=== PATIENT | male | born 1955 | race Caucasian/White ===

== ENCOUNTER 2017-01-04 00:29 | Inpatient (IN) | payer MEDICARE ==
[~2017-01-04] VITALS: Ht 198.1 cm; Wt 174.6 kg
--- NOTE | ~2017-01-04 | OP ---
PATIENT NAME: PHILIPPE LEON MEDICAL RECORD: [id number] :[birth year] LOCATION:D.MS [facility]38 ADMISSION DATE:01/04/17 SURGEON: ZANE HERNANDEZ MD DATE OF OPERATION: 01/05/2017 PREOPERATIVE DIAGNOSES: 1. Left foot diabetic ulcer. 2. Diabetic neuropathy. 3. Diabetes mellitus. 4. Morbid obesity. POSTOPERATIVE DIAGNOSES: 1. Left foot diabetic ulcer. 2. Diabetic neuropathy. 3. Diabetes mellitus. 4. Morbid obesity. PROCEDURE: Excisional sharp debridement of left foot wounds. SURGEON: Zane Hernandez MD. REPORT OF PROCEDURE: The patient's left foot was prepped and draped in sterile fashion. On the lateral aspect of the plantar aspect of the foot just below the fifth toe, there is an area of necrotic tissue. There was no noted purulence. The tissue was sharply excised down to normal appearing bloody tissue. This dissection was continued with electrocautery until we had a normal tissue throughout the base of the wound. There was no tracking of the wound in the area between the toes or to the bone or joint. The total size of the wound at the conclusion was a 2.5 x 3 cm. The depth was approximately 1 cm. We irrigated out the wound thoroughly with peroxide and saline solution and then packed the wound with peroxide soaked 4 x 4 and then covered it with dry 4 x 4s, Kerlix and an Prosper wrap. COMPLICATIONS: None. CONDITION: Stable. ANESTHESIA: General endotracheal. BLOOD LOSS: 30 mL. TRANSINT:[id number] Voice Confirmation ID: [id number] DOCUMENT ID: [id number] ZANE HERNANDEZ MD CC: YAMILET WILSON MD [id number] DICTATION DATE: 01/05/17 1304 COMMERCIAL MANAGEMENT ACCOUNTANT: 01/05/17 1409 ADM IN [place] [id number] [place] [address]
--- NOTE | ~2017-01-04 | PN ---
PATIENT:PHILIPPE LEON MEDICAL RECORD: [id number] LOCATION:DMelanyMS [facility]223 ADMISSION DATE: 01/04/17 PROGRESS NOTE DATE OF SERVICE: 01/06/2017 Addendum His dressing is dry. The family was at the bedside. They showed me some pictures of some before and after pictures of the wound approximately debridement and afterwards. Dr. Hernandez will return on Sunday. The patient's pain is controlled. TRANSINT:[id number] Voice Confirmation ID: [id number] DOCUMENT ID: [id number] TED TAYLOR MD CC: [id number] DICTATION DATE: 01/07/171925 MATCHER: 01/07/172024 ADM IN [facility] [address] [place] [address]
--- NOTE | ~2017-01-04 | DS ---
PATIENT:PHILIPPE LEON :53 MEDICAL RECORD: [id number] DISCHARGE SUMMARY ADMISSION DATE: 01/04/17 DISCHARGE DATE: DISCHARGE DIAGNOSES: Left plantar foot ulcer, left foot cellulitis with Providencia rettgeri, Staphylococcus aureus, glucose intolerance, exogenous obesity, adult obstructive sleep apnea, peripheral neuropathy, hyperlipidemia, hypertension, lumbar disc disease, chronic pain syndrome, osteoarthritis. HOSPITAL COURSE: A 61-year-old male with glucose intolerance and chronic neuropathy in his lower extremities, followed by Dr. Luna in [place], presented to medicine unassigned call with a nonhealing left plantar foot ulcer. It was necrotic and fairly large. He had decreased sensation to touch. Arterial Dopplers did show slight decreased flow in the left lower extremity. Seen in consultation by Dr. Hernandez from surgery. The patient was taken to surgery the following day with a sharp excisional debridement of the left foot wounds. No tracking was noted. Total size of the wound at the conclusion was 2.5 x 3 cm. The depth was 1 cm. It was then packed with peroxide soaks 4 x 4 and cover with dry 4 x 4s. Postoperatively, the patient has done well, is on IV antibiotics. Cultures returned showing above organisms. He has received a full course of antibiotics currently and his cellulitis has resolved. The wound is improving with daily wound care. The patient's metformin was held for an arteriogram, which showed no evidence of significant occlusive disease. Desires discharge home today. He will be switched to oral Septra DS, which covers both of the organisms. He is going to follow up with his doctor, Dr. Luna, [facility] for wound dressing changes. I have recommended followup at the diabetic foot clinic at [facility]. They will consider that with Dr. Luna. DISCHARGE MEDICATIONS: Septra DS 1 p.o. b.i.d. for 10 days, ____ peroxide 4 x 4s soaked dressing changes daily, pravastatin 40 mg at bedtime, lisinopril 20 mg a day, HCTZ 25 mg p.o. q. a.m., Neurontin 100 mg p.o. t.i.d., allopurinol 300 mg daily, metformin 500 mg b.i.d., Tylenol 650 one q. 6 hours p.r.n. pain, Stamps 10/325 one q. 4 hours for severe pain, Zanaflex 4 mg q. 8 hours at bedtime p.r.n. muscle spasm. ACTIVITY: Progress as tolerated. DIET: ADA diet. Return to clinic to see Dr. Luna in 1 week. TRANSINT:[id number] Voice Confirmation ID: [id number] DOCUMENT ID: [id number] YAMILET WILSON MD CC: [id number] DICTATION DATE: 01/09/17822 GASKET WINDER: 01/09/17 0954 [facility] IN [place] [id number] [place] [id number]
[2017-01-04 01:31] LABS: BASOPHILS 0.4 % (0.0-2.0); EOSINOPHILS 1.2 % (0-7); HEMATOCRIT 53.9 % (42.0-54.0); HEMOGLOBIN 18.5 g/dL (13.5-17.5); IMMATURE GRANULOCYTES 0.2 % (0-5); LYMPHOCYTES 22.2 % (15-50); MCHC 34.3 g/dL (31.0-37.0); MCV 93.3 fL (80.0-100.0); MEAN PLATELET VOLUME 9.9 fL (7.4-10.4); MONOCYTES 8.4 % (2-11); NEUTROPHILS 67.6 % (40-80); PLATELET COUNT 260 10x3/uL (130-400); RBC 5.78 10x6/uL (4.20-6.10); RDW 14.4 % (11.5-14.5); WBC 9.2 10x3/uL (4.8-10.8)
[2017-01-04 01:40] LABS: ALBUMIN 3.6 g/dL (3.4-5.0); ANION GAP 14.9 mmol/L (8-16); BILIRUBIN - TOTAL 0.49 mg/dL (0.2-1.3); CALCIUM 9.4 mg/dL (8.5-10.1); CARBON DIOXIDE 26.9 mmol/L (21.0-32.0); CREATININE - SERUM 1.2 mg/dL (0.6-1.3); MAGNESIUM - SERUM 1.9 mg/dL (1.8-2.4); POTASSIUM - SERUM 3.8 mmol/L (3.5-5.1); PROTEIN - SERUM 8.3 g/dL (6.4-8.2)
--- NOTE | 2017-01-04 04:03 | NUR ---
RECIEVED TO ROOM 2238 VIA WHEELCHAIR FROM ER WIHT COMPLIANTS OF DIABETIC FOOT. ALERT ORIENTED X 3. SL TO LEFT AC INTACT WIHTOUT REDNESS OR EDEMA. DRSG TO LEFT FOOT INTACT. NO DRAINAGE NOTED. AT BEDSIDE.
[2017-01-04] MEDS ORDERED: ZYLOPRIM300 MG PO (04:23)
[2017-01-04] MEDS ORDERED: HYDROCODONE-APA1 TAB PO (04:24)
[2017-01-04] MEDS ORDERED: GLUCOPHAGE500 MG PO (04:25)
[2017-01-04] MEDS ORDERED: ZANAFLEX4 MG PO (04:25)
[2017-01-04] MEDS ORDERED: TRAZODONE HCL50 MG PO (04:27)
[2017-01-04] MEDS ORDERED: LISINOPRIL-HCTZ1 T13 PO (04:27)
[2017-01-04] MEDS ORDERED: GABAPENTIN100 MG PO (04:28)
[2017-01-04] MEDS ORDERED: PRAVACHOL40 MG PO (04:28)
[2017-01-04] MEDS ORDERED: SSD20 GM (04:29)
[2017-01-04 06:08] VITALS: BP 118/63; BMI 44.5
[2017-01-04 08:20] VITALS: BP 117/66
--- NOTE | 2017-01-04 08:41 | NUR ---
Patient Name: PHILIPPE LEON Admission Status: ER Accout number: [id number] Admission Date: 01-04-2017 : 1955 Admission Diagnosis: Attending: DAX Current LOS: 1 Anticipated DC Date: 01-08-2017 Planned Disposition: Home or Self Care Primary Insurance: [employer] ADV Discharge Planning Comments: CM MET WITH PATIENT REGARDING D/C NEEDS AND PLANS. PATIENT STATED HIS WILL DRIVE HIM HOME AT DISCHARGE. THERE ARE 2 STEPS W/O RAILS TO ENTER HOME AND NO STAIRS INSIDE. PATIENT STATED HE IS INDEPENDENT WITH HIS CARE AND HAS A C-PAP AT HOME. PATIENT STATED HIS PCP IS DR. DANIEL IN [place] AND PHARMACY IS [facility] IN [place]. PATIENT HAS NEVER HAD HOME HEALTH AND DOES NOT THINK HE WILL NEED IT. CM WILL CONTINUE TO FOLLOW PATIENT WITH D/C NEEDS AND PLANS. PCP DR. DANIEL ([place]) [facility] IN [place]- [phone] MEGHA () [phone] Executive Steward: Jaquelin Stark Is the patient Alert and Oriented? Yes 0 * How many steps to enter\exit or inside your home? 2 W/O RAIL 0 * PCP DR. DANIEL IN [place] 0 * Pharmacy [facility] IN [place] 0 * Preadmission Environment Home with Family 0 * ADLs Independent 0 * Equipment CPAP 0 * List name and contact numbers for known caregivers / representatives who currently or will assist patient after discharge: MEGHA () [phone] 0 * Community resources currently utilized None 0 * Additional services required to return to the preadmission environment? Yes 0 * Can the patient safely return to the preadmission environment? Yes 0 * Has this patient been hospitalized within the prior 30 days at any hospital? No 0 Grand Total: 0
[2017-01-04 08:48] LABS: ERYTHROCYTE SEDIMENTATION RATE 10 mm/hr (0-20)
[2017-01-04 12:36] VITALS: BP 131/53
[2017-01-04 14:13] VITALS: Ht 198.1 cm; Wt 174.6 kg
[2017-01-04 16:08] VITALS: BP 113/62
[2017-01-04 20:00] VITALS: BP 128/73
[2017-01-05] VITALS: BP 121/64
[2017-01-05 05:00] VITALS: BP 121/62
[2017-01-05 05:57] LABS: BASOPHILS 0.2 % (0.0-2.0); EOSINOPHILS 1.8 % (0-7); HEMATOCRIT 53.4 % (42.0-54.0); HEMOGLOBIN 18.2 g/dL (13.5-17.5); IMMATURE GRANULOCYTES 0.4 % (0-5); LYMPHOCYTES 23.9 % (15-50); MCH 32.2 pg (26.0-34.0); MCHC 34.1 g/dL (31.0-37.0); MCV 94.3 fL (80.0-100.0); MONOCYTES 6.6 % (2-11); NEUTROPHILS 67.1 % (40-80); PLATELET COUNT 261 10x3/uL (130-400); RBC 5.66 10x6/uL (4.20-6.10); RDW 14.3 % (11.5-14.5); WBC 8.5 10x3/uL (4.8-10.8)
[2017-01-05 06:17] LABS: ANION GAP 13.6 mmol/L (8-16); CALCIUM 9.3 mg/dL (8.5-10.1); CARBON DIOXIDE 28.5 mmol/L (21.0-32.0); CREATININE - SERUM 1.1 mg/dL (0.6-1.3); POTASSIUM - SERUM 4.1 mmol/L (3.5-5.1)
[2017-01-05 06:24] LABS: APPEARANCE CLEAR (CLEAR); BILIRUBIN NEGATIVE (NEGATIVE); COLOR YELLOW (YELLOW); GLUCOSE NEGATIVE (NEGATIVE); KETONE NEGATIVE (NEGATIVE); LEUKOCYTE ESTERASE NEGATIVE (NEGATIVE); NITRITE NEGATIVE (NEGATIVE); PROTEIN NEGATIVE (NEGATIVE); SPECIFIC GRAVITY 1.015 (1.005-1.020); UROBILINOGEN NORMAL (NORMAL)
[2017-01-05 06:24] LABS: HEMOGLOBIN A1C 5.4 % (4.8-6.0)
[2017-01-05 06:25] LABS: BACTERIA NONE SEEN /hpf (NONE SEEN); EPITHELIAL CELLS NSEEN /hpf (0-5); RED CELLS - URINE 0-5 /hpf (0-5); WHITE CELLS - URINE NSEEN /hpf (0-5)
--- NOTE | 2017-01-05 06:54 | HP ---
PATIENT: PHILIPPE LEON MEDICAL RECORD: [id number] ACCOUNT: [id number] LOCATION:D.MS [facility]ler2238 : [birth year] ADMISSION DATE: 01/04/17 HISTORY AND PHYSICAL EXAMINATION REASON FOR ADMISSION: Left foot ulcer and pain. HISTORY OF PRESENT ILLNESS: The patient is a 61-year-old male with type 2 diabetes mellitus that was diagnosed about 9 months ago. He has had numbness in the bottoms of both of his feet for several years, however. He sees Dr. Luna in [place]. He states he felt a little bit of discomfort in his foot and felt something malodorous a few days ago. He could not really look at his foot. His checked and said that he had an infection and brought him to the ER. He denies fever. Denies any injury or any type of insect wound as far as he is aware of. He states he was diagnosed with diabetes approximately 9 months ago, has lost 40 pounds with diet since that time and is on metformin. He is unsure what his A1c is. He denies any history of claudication or peripheral vascular disease. 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 PAST SURGICAL HISTORY: Lumbar discectomy at L3-L4 remotely, had vein stripping in both legs for varicose veins and he had arthroscopy in his right knee remotely. FAMILY HISTORY: Father of Alzheimer's. Mother has history of lung cancer, but she is a nonsmoker. One brother who is 58, had coronary stents last year. SOCIAL HISTORY: He is disabled from working in a warehouse. He has 4 children. He is . His works in the home. She is disabled as well. He is a nonsmoker, nondrinker lifelong. HOME MEDICATIONS: Pravastatin 40 mg with evening meal, lisinopril/HCTZ 20/25 one q.a.m., meloxicam 15 mg daily, allopurinol 300 mg daily, Packwaukee 325/10 mg 1 t.i.d. p.r.n. pain, he uses rarely. ALLERGIES: None known. REVIEW OF SYSTEMS: GENERAL: No fever or fatigue, intentional 40-pound weight loss over the last year with diet. HEENT: No recent visual change, sinus congestion or sore throat. RESPIRATORY: No SOB or cough. CARDIAC: No exertional chest pain, claudication or edema. GASTROINTESTINAL: No nausea, vomiting, change in stools or blood per rectum. He has a colonoscopy scheduled, has not had it yet. GENITOURINARY: Has nocturia once nightly. No dysuria. ENDOCRINE: Denies polyuria, polydipsia, heat or cold intolerance. NEUROLOGIC: No history of stroke, TIA, or vascular headaches. INTEGUMENT: No rash or itching. PSYCHIATRIC: Denies depressed mood. MUSCULOSKELETAL: Has intermittent lumbago for which he had already taken Packwaukee. HISTORY AND PHYSICAL [id number] PHILIPPE LEON He had severe muscle pain and spasms in his back earlier in the year and had LESI with Dr. De La O in [place] and had marked improvement. PHYSICAL EXAMINATION: VITAL SIGNS: Temperature is 98.4, pulse is 86 and regular, respirations are 20, blood pressure 120/71 and sat 94% on room air. GENERAL: The patient is alert and oriented and very pleasant on exam. HEENT: Normocephalic. Eyes are clear. He has facial flushing. NECK: No bruits or masses. CHEST: Clear. HEART: Regular rate without MGR. PMI appropriate. ABDOMEN: Obese, soft. No organomegaly. GENITOURINARY: No hernias are appreciated. RECTAL: Deferred. EXTREMITIES: He has some scattered varicose veins in his lower extremities. On the bottom of the left foot over the medial metatarsal head, there is by 3 x 3 inch necrotic malodorous wound that is black in color, it is not oozing currently. There is no surrounding erythema. Distal pulses appear intact. NEUROLOGICAL: He is oriented to person, place, and time. Cranial nerves intact. Gait is normal except for limping due to his foot discomfort currently. He has decreased sensation to touch in the bottoms of both feet, however. LABORATORY WORK: His white blood count is 9.2 thousand with normal diff, H&H is 18.5 and 53.9. Chemistry shows sodium 134, potassium 3.8, BUN and creatinine are 18 and 1.2, glucose is 113. Lactic acid is 2.2. Liver functions are normal. UA is pending. No imaging has been performed in the ED. ASSESSMENT: 1. Necrotic wound, bottom of the left foot, etiology unknown. 2. Adult-onset diabetes mellitus. 3. Diabetic plantar neuropathy. 4. Hyperlipidemia. 5. Hypertension. 6. Lumbar disc disease. 7. History of gout, history of osteoarthritis. 8. Polycythemia. PLAN: We will obtain arterial Doppler, place on IV antibiotics. We will obtain x-ray of his foot. Check sed rate and a surgical consult. TRANSINT:[id number] Voice Confirmation ID: [id number] DOCUMENT ID: [id number] YAMILET WILSON MD at 0654 CC: [id number] DICTATION DATE: 01/04/1720 SLEEP TECHNICIAN: 01/04/17 0754 ADM IN [place] [id number] [place] [id number]
--- NOTE | 2017-01-05 07:30 | NUR ---
RECIEVED PT DURING WALKING ROUNDS. PT RESTING IN BED WITH NO COMPLAINTS OF PAIN OR DISCOMFORT AT THIS TIME. ASSESSMENT DONE PER FLOWSHEET. RIGHT FOOT COLD AND DISCOLORED, PT STATES THAT IS NORMAL FOR HIM. PULSE PALPABLE BILATERALLY. BED IN LOW POSITION AND CALL LIGHT WITHIN REACH. WILL CONTINUE TO MONITOR.
[2017-01-05 07:35] VITALS: BP 105/65
[2017-01-05 11:35] VITALS: BP 99/55
--- NOTE | 2017-01-05 13:40 | NUR ---
PT RETURNED FROM SURGERY AT THIS TIME. POST-OP VITALS STARTED. PT TOLERATED WELL WITH NO COMPLAINTS OF PAIN. BED IN LOW POSITION AND CALL LIGHT WITHIN REACH. WILL CONTINUE TO MONITOR.
[2017-01-05 13:42] VITALS: BP 125/71
--- NOTE | 2017-01-05 15:30 | NUR ---
PATIENT IN BED WITH EYES CLOSED RESTING QUIETLY AT THIS TIME. NO COMPLAINTS. CALL LIGHT WITHIN REACH.
--- NOTE | 2017-01-05 19:25 | NUR ---
RECIEVED SHIFT REPORT. PT IS LYING IN BED. ALERT AND ORIENTED AND ABLE TO VERBALIZE NEEDS. IV IS PATENT AND SALINE LOC AT THIS TIME. PT IS AMBULATORY BUT WAS INSTRUCTED TO CALL FOR ANY ASSISTANCE NEEDED. DRESSING TO LEFT FOOT C/D/I. PT STATES PAIN IS 1/10. NO NEEDS ARE VERBALIZED AT THIS TIME. WILL CONTINUE TO MONITOR. SIDE RAILS ARE UP X 2. BED IS IN LOWEST POSITION. CALL LIGHT IS WITHIN REACH.
[2017-01-05 20:00] VITALS: BP 144/77
--- NOTE | 2017-01-05 20:28 | NUR ---
SHIFT ASSESSMENT COMPLETED. NIGHT MEDS GIVEN WITH NO PROBLEMS. NO NEEDS ARE VOICED. WILL MONITOR. SIDE RAILS X 2. BED LOW. CALL LIGHT IN REACH.
[2017-01-06] VITALS: BP 132/69
[2017-01-06 04:00] VITALS: BP 136/65
--- NOTE | 2017-01-06 07:45 | NUR ---
AWAKE AND ALERT, DENIES NEEDS, ORIENTED X4, BED LOWEST POSITION, CALL LIGHT IN REACH, WILL CONTINUE TO MONITOR
[2017-01-06 08:41] VITALS: BP 113/57
[2017-01-06 12:30] VITALS: BP 114/65
--- NOTE | 2017-01-06 12:45 | NUR ---
AWAKE AND ALERT WITH FAMILY AT BEDSIDE. EATING LUNCH AT THIS TIME. REMAINS IN ISOLATION FOR WOUND. DENIES NEEDS AT THIS TIME. SELF POSITIONS AND AMBULATES FOR COMFORT. CALL LIGHT IN REACH, WILL CONTINUE WITH PLAN OF CARE.
[2017-01-06 16:05] VITALS: BP 131/69
[2017-01-06 20:00] VITALS: BP 128/65
--- NOTE | 2017-01-07 00:37 | NUR ---
ASSESSED AT THE BEGINNING OF THE SHIFT. HE IS ALERT AND ORIENTED, ABLE TO VERBALIZE NEEDS. HE IS IN CONTACT ISOLATION. HIS RIGHT FOOT HAS HAD AN I&D FROM A POSSIBLE SPIDER BITE AND THE DRESSING IS WRAPPED WELL WITH NO DRAINAGE NOTED. HE CAN GET UP TO THE BATHROOM AD MARY SINCE IS IS SO CLOSE. AT NIGHT HE HAS A CAPA MACHINE HE USEDS AND KEEPS ON MOST OF THE NIGHT. THE BED IS LOW, RAILS UP X'S 2 WITH THE CALL LIGHT AT HAND.
[2017-01-07 04:00] VITALS: BP 122/66
--- NOTE | 2017-01-07 07:45 | NUR ---
CONTACT ISOLATION REMOVED, ALERT AND ORIENTED, CALL LIGHT IN REACH, DENIES NEEDS, ASSESSMENT COMPLETE, WILL CONTINUE TO MONIOTR, BED LOWEST POSITION, FAMILY AT BEDSIDE
[2017-01-07 08:19] VITALS: BP 147/68
[2017-01-07 11:53] VITALS: BP 123/58
--- NOTE | 2017-01-07 12:30 | NUR ---
LUNCH TRAY DELIVERED TO PT AT THIS TIME. OUT OF ISOLATION. RESPIRATIONS EVEN AND NON LABORED. DENIES NEEDS AT THIS TIME. CALL LIGHT IN REACH, WILL CONTINUE WITH PLAN OF CARE.
[2017-01-07 15:36] VITALS: BP 146/71
[2017-01-07 20:00] VITALS: BP 135/72
--- NOTE | 2017-01-07 20:00 | NUR ---
ASSESSMENT PER FLOWSHEET. IV PATENT LEFT AC SALINE LOCKED FOR ANTIBIOTIC. SR UP X2 CALL LIGHT WITHIN REACH. DRESSING TO LEFT FOOT C/D/I. ELEVATED ON PILLOW.
--- NOTE | 2017-01-07 22:00 | NUR ---
MEDS GIVEN PER MAR.
--- NOTE | 2017-01-08 | NUR ---
AWAKE WATCHING TV. DENIES NEEDS.
--- NOTE | 2017-01-08 01:48 | NUR ---
ANTIBIOTIC HUNG PER DEC. UP AD MARY TO BR VOIDS WELL.
[2017-01-08 08:06] VITALS: BP 125/49
--- NOTE | 2017-01-08 08:15 | NUR ---
PT AOX4 RESP EVEN AND NONLABORED LUNG SOUNDS CLEAR PT DENIES NEEDS AT THIS TIME IV TO LEFT AC PATENT AND INTACT. PT IN FOR SPIDER BITE ON LEFT FOOT. PT STABLE. IN BED AT LOWEST SETTING SRX2 CALL LIGHT WITHIN REACH
--- NOTE | 2017-01-08 08:41 | NUR ---
PT AWAKE AND ALERT ORINETED X 3 LUNGS CLAER BILATERALLY NO ACUTE DISTRESS NOTED VOICES ALL NEEDS TO STAFF CALL LIGHT IN REACH SIDE RAILS UP X 2
--- NOTE | 2017-01-08 11:05 | NUR ---
PT HAD CTA AFRO THIS AM NO ACUTE DISTRESS NOTED. VOICES ALL NEEDS TO STAFF.
[2017-01-08 11:21] VITALS: BP 122/68
--- NOTE | 2017-01-08 14:59 | NUR ---
PT AWAKE AND ALERT ORIENTED X 3 LUNGS CLEAR BILAT. DRESSING INTACT TO LEFT FOOT. NO ACUTE DISTRESS NOTED DENIES PAIN
--- NOTE | 2017-01-08 15:11 | NUR ---
NUTRITION MONITORING & EVAL PT VISIT. INQUIRING ~ DANIELA FOR IMPROVED WOUND HEALING. ADDED TO DIET ORDER, CALLED DIET OFFICE. RD FOLLOWING
[2017-01-08 15:20] VITALS: BP 118/64
[2017-01-08 19:00] VITALS: BP 128/72
--- NOTE | 2017-01-09 00:34 | NUR ---
1930)REC'D. IN BED DURING WALKING ROUNDS IN BED FAMILY AT BEDSIDE.BULKY ACEWRAP DRSG. DRY AND INTACT TO LEFT FOOT.TOES VISIBLE WITH MINIMAL AMT. SWELLING/NUMBNESS PRESENT.WIGGLES TOES WITHOUT DIFFICULTY. UP ON PILLOW.WILL CONTINUE TO MONITOR FOR ANY CHGES. IN NEUROVASCULAR STATUS AND FOLLOW CURRENT PLAN OF CARE.
[2017-01-09 01:32] VITALS: BP 115/743
--- NOTE | 2017-01-09 03:18 | NUR ---
RESTING WITH EYES CLOSED, NO DISTRESS NOTED, SR'S UP, CL IN REACH
[2017-01-09 04:00] VITALS: BP 111/69
[2017-01-09 05:00] LABS: BASOPHILS 0.7 % (0.0-2.0); EOSINOPHILS 6.9 % (0-7); HEMATOCRIT 53.4 % (42.0-54.0); HEMOGLOBIN 17.7 g/dL (13.5-17.5); IMMATURE GRANULOCYTES 0.4 % (0-5); LYMPHOCYTES 33.6 % (15-50); MCH 31.6 pg (26.0-34.0); MCHC 33.1 g/dL (31.0-37.0); MCV 95.2 fL (80.0-100.0); MEAN PLATELET VOLUME 9.7 fL (7.4-10.4); MONOCYTES 6.3 % (2-11); NEUTROPHILS 52.1 % (40-80); PLATELET COUNT 288 10x3/uL (130-400); RBC 5.61 10x6/uL (4.20-6.10); RDW 13.8 % (11.5-14.5); WBC 7.4 10x3/uL (4.8-10.8)
[2017-01-09 05:18] LABS: CALCIUM 9.5 mg/dL (8.5-10.1); CARBON DIOXIDE 29.1 mmol/L (21.0-32.0); CREATININE - SERUM 1.3 mg/dL (0.6-1.3); POTASSIUM - SERUM 4.1 mmol/L (3.5-5.1)
[2017-01-09 08:22] VITALS: BP 111/72
[2017-01-09] MEDS ORDERED: BACTRIM DS TABL1 TAB PO (08:24)
--- NOTE | 2017-01-09 10:19 | NUR ---
PT IN FOR SPIDER BITE ON LEFT FOOT IV IN LEFT FOREARM PATENT AND INTACT RECEIVING IV ANTIBIOTICS PT DENIES NEEDS AT THIS TIME WILL CONTINUE TO MONITOR
--- NOTE | 2017-01-09 10:21 | NUR ---
CM REASSESSMENT NOTE: PATIENT IS DISCHARGING HOME TODAY- DRIVING. PATIENT CHOSE [facility] AND SIGNED THE [facility] FORM. PATIENT HAD NO OTHER NEEDS FOR DISCHARGE. [facility] WAS NOTIFIED AND ARE AWARE OF PATIENT DISCHARGING TODAY.
--- NOTE | 2017-01-09 13:50 | NUR ---
PT DISCHARGED WOUND CARE DEMONSTRATION GIVEN TO PT EDUCATED ABOUT WOUND CARE DISCAHRGE INSTRUCTIONS GIVEN AND EXPRESSED UNDERSTANDING
== END 2017-01-09 13:53 | disposition home health service (06) | DRG 623 ==
LOC: D.ER 00:29 → D.MS 02:17
PROVIDERS: Physician Assistant Medical; Surgery; ADMIT Family Medicine
PROC: 0JBR0ZZ Excision of Left Foot Subcutaneous Tissue and Fascia, Open Approach (ICD-10-PCS; principal; 2017-01-05 11:15)
DX: E11.621 Type 2 diabetes mellitus with foot ulcer (principal); E11.52 Type 2 diabetes mellitus with diabetic peripheral angiopathy with gangrene; L03.116 Cellulitis of left lower limb; Z68.41 Body mass index [BMI] 40.0-44.9, adult; L97.529 Non-pressure chronic ulcer of other part of left foot with unspecified severity; E11.40 Type 2 diabetes mellitus with diabetic neuropathy, unspecified; E78.5 Hyperlipidemia, unspecified; I10 Essential (primary) hypertension; M51.36 Other intervertebral disc degeneration, lumbar region; D75.1 Secondary polycythemia; B95.61 Methicillin susceptible Staphylococcus aureus infection as the cause of diseases classified elsewhere; B96.89 Other specified bacterial agents as the cause of diseases classified elsewhere; E66.09 Other obesity due to excess calories; G47.33 Obstructive sleep apnea (adult) (pediatric); M19.90 Unspecified osteoarthritis, unspecified site; G89.29 Other chronic pain

== ENCOUNTER 2017-01-24 13:02 | Inpatient (IN) | payer MEDICARE ==
[~2017-01-24] VITALS: Ht 198.1 cm; Wt 174.6 kg
[~2017-01-24 13:02] MED LIST: BACTRIM DS TABL1 TAB PO; GABAPENTIN100 MG PO; GLUCOPHAGE500 MG PO; HYDROCODONE-APA1 TAB PO; LISINOPRIL-HCTZ1 T13 PO; PRAVACHOL40 MG PO; SSD20 GM; TRAZODONE HCL50 MG PO; ZANAFLEX4 MG PO; ZYLOPRIM300 MG PO
--- NOTE | 2017-01-24 13:50 | NUR ---
RECIEVED TO FLOOR VIA WC, ALERT AND ORIENTED, DENIES NEEDS, ORIENTED TO ROOM, CALL LIGHT IN REACH, WILL CONTINUE TO MONITOR
[2017-01-24 14:00] VITALS: BP 92/65; BMI 44.5
[2017-01-24 14:51] VITALS: BP 145/76
[2017-01-24 15:35] LABS: BASOPHILS 0.2 % (0.0-2.0); EOSINOPHILS 1.6 % (0-7); HEMATOCRIT 51.6 % (42.0-54.0); HEMOGLOBIN 17.1 g/dL (13.5-17.5); IMMATURE GRANULOCYTES 0.2 % (0-5); MCH 31.4 pg (26.0-34.0); MCHC 33.1 g/dL (31.0-37.0); MCV 94.7 fL (80.0-100.0); MEAN PLATELET VOLUME 9.5 fL (7.4-10.4); MONOCYTES 10.8 % (2-11); NEUTROPHILS 69.2 % (40-80); PLATELET COUNT 193 10x3/uL (130-400); RBC 5.45 10x6/uL (4.20-6.10); RDW 13.7 % (11.5-14.5); WBC 8.6 10x3/uL (4.8-10.8)
[2017-01-24 16:01] LABS: ANION GAP 12.8 mmol/L (8-16); C-REACTIVE PROTEIN 10.5 mg/dL (0.0-0.9); CALCIUM 9.1 mg/dL (8.5-10.1); CARBON DIOXIDE 31.2 mmol/L (21.0-32.0); CREATININE - SERUM 1.2 mg/dL (0.6-1.3)
[2017-01-24 16:12] VITALS: BP 97/70
[2017-01-24 16:38] LABS: ERYTHROCYTE SEDIMENTATION RATE 38 mm/hr (0-20)
[2017-01-24 20:00] VITALS: BP 92/65
--- NOTE | 2017-01-24 20:40 | NUR ---
AWAKE,ALERT. SL TO RIGHT FOREARM INTACT WIHT NO REDNESS OR EDEMA NOTED. DRSG TO LEFT FOOT INTACT WIHTOUT DRAINAGE..NO COMPLAINTS FAMILY AT BEDSIDE.
[2017-01-25] VITALS: BP 123/56
--- NOTE | 2017-01-25 00:09 | NUR ---
RESTING QUIETLY. NO DISTRESS NOTED.
[2017-01-25 03:00] VITALS: BP 115/65
--- NOTE | 2017-01-25 06:12 | NUR ---
awake with no complaints. cl in reach.
--- NOTE | 2017-01-25 07:30 | NUR ---
ASSESSMENT PER FLOW SHEET.PT WITHOUT DISTRESS.DENIES NEEDS AT PRESENT.CALL LIGHT IN REACH
[2017-01-25 09:08] VITALS: BP 126/68
--- NOTE | 2017-01-25 11:40 | NUR ---
DRESSING CHANGE TO LEFT FOOT. CX TO MICRO ORDERED.SPOKE WITH PAOLO.
[2017-01-25 12:55] VITALS: BP 114/68
--- NOTE | 2017-01-25 13:57 | NUR ---
FAMILY REMAINS AT BEDSIDE.PT WITHOUT DISTRESS.CALL LIGHT IN REACH.
[2017-01-25 14:15] VITALS: Ht 198.1 cm; Wt 174.6 kg
--- NOTE | 2017-01-25 16:32 | NUR ---
Patient Name: PHILIPPE LEON Admission Status: Urgent Accout number: [id number] Admission Date: 01-24-2017 : 1955 Admission Diagnosis:TYPE 2 DIABETES MELLITUS WITH OTHER SKIN COMPLICATIONS Attending: DAX Current LOS: 1 Anticipated DC Date: 01-29-2017 Planned Disposition: Home with Home Health Primary Insurance: [employer] ADV Discharge Planning Comments: CM MET WITH PATIENT AND (MEGHA) REGARDING D/C NEEDS AND PLANS. STATED SHE WOULD DRIVE PATIENT HOME AT DISCHARGE. PATIENT HAS 3 STEPS W/O RAILS TO ENTER HOME AND NO STAIRS INSIDE. PATIENT IS INDEPENDENT WITH HIS CARE AND HAS NO DME AT HOME. PATIENTS PCP IS DR. DANIEL IN [place] AND USES [facility] IN [place]. PATIENT IS CURRENT WITH [facility]. PCP DR. DANIEL ([place]) [facility] [place]- [phone] ME[place] () [phone] Hogshead Mat Assembler: Jaquelin Stark Is the patient Alert and Oriented? Yes 0 * How many steps to enter\exit or inside your home? 3 W/O RAIL 0 * PCP DR. DANIEL [place] 0 * Pharmacy [facility] [place] 0 * Preadmission Environment Home with Family 0 * ADLs Independent 0 * Equipment None 0 * List name and contact numbers for known caregivers / representatives who currently or will assist patient after discharge: MEGHA [phone] 0 * Community resources currently utilized Home Health 0 * Please name any agencies selected above. [facility] 0 * Additional services required to return to the preadmission environment? Yes 0 * Can the patient safely return to the preadmission environment? Yes 0 * Has this patient been hospitalized within the prior 30 days at any hospital? Yes 0 Grand Total: 0
[2017-01-25 16:59] VITALS: BP 118/72
--- NOTE | 2017-01-25 17:58 | HP ---
PATIENT: PHILIPPE LEON MEDICAL RECORD: [id number] ACCOUNT: [id number] LOCATION:D.MS [facility] : 53 ADMISSION DATE: 01/24/17 HISTORY AND PHYSICAL EXAMINATION REASON FOR ADMISSION: Left foot erythema and pain. HISTORY OF PRESENT ILLNESS: The patient is a 61-year-old male diabetic with chronic neuropathy. He was hospitalized here approximately 2 weeks ago for a left lateral plantar foot wound. He underwent debridement. He was treated with vancomycin and had improvement in his symptomatology. Dr. Hernandez performed a sharp excisional debridement of the left foot. The patient's wound yielded 2 bacteria, Providencia and Staph aureus, that were sensitive to vancomycin and oral Septra. He was switched to Septra and discharged home with home health wound dressing changes. He is scheduled to see Dr. Olson at the foot clinic. Dr. Olson called me today stating his foot was worse. He thought that he could actually probe the wound into the bone and felt the patient needed to be inpatient hospitalized for possible osteomyelitis and/or amputation. The patient denies fever as his foot has been more swollen, red and on top of the foot, which is unusual for him. He denies fever. PAST MEDICAL HISTORY: 1. As above. 2. Adult sleep apnea. 3. Exogenous obesity. 4. Glucose intolerance. 5. Essential hypertension. 6. Hyperlipidemia. 7. Lumbar disc disease for which he is disabled. 8. History of gout. 9. Osteoarthritis. 10. He has had lumbar steroid injections for low back pain. PAST SURGICAL HISTORY: Lumbar discectomy at L3-4, vein stripping in both legs for varicose veins, arthroscopy in his right knee remotely and sharp dissection of his left plantar foot ulcer in December of 2016. FAMILY HISTORY: Mother has history of lung cancer and is a nonsmoker, one brother is 58, had coronary stents a year ago. Father of Alzheimer dementia. 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 He has 4 children, is , works in the home. She is stable as well. He is a nonsmoker, nondrinker lifelong. HOME MEDICATIONS: Septra-DS b.i.d., pravastatin 40 mg with evening meal, lisinopril/HCTZ 20/25 one q.a.m., meloxicam 15 mg p.o. daily, metformin 500 mg daily, allopurinol 300 mg a day and [place] 10/325, one q.6 hours for pain. ALLERGIES: None known. REVIEW OF SYSTEMS: GENERAL: No fever or fatigue. HEENT: No recent visual change, sinus congestion, sore throat, or hearing difficulty. HISTORY AND PHYSICAL [id number] PHILIPPE LEON RESPIRATORY: No SOB or cough. CARDIAC: No exertional chest pain or claudication. He has had some difficulty walking due to his foot pain recently. GENITOURINARY: Nocturia once nightly. PSYCHIATRIC: Denies depressed mood. NEUROLOGIC: He has chronic numbness in both of his legs and feet. Denies history of stroke or seizures. PHYSICAL EXAMINATION: GENERAL: Alert 61-year-old male, at this time, in no acute distress. His temperature is 97.7 Fahrenheit orally, pulse 96 and regular, respirations are 16, and blood pressure was 145/76 with a sat of 96% on room air. HEENT: Normocephalic. Eyes are clear. NECK: No bruits or masses. CHEST: Clear. HEART: Regular without murmur. ABDOMEN: Mildly obese, soft, and nontender. GENITOURINARY: Unremarkable. EXTREMITIES: He has 1+ pretibial edema bilaterally. His left foot is pink and erythematous and blanches to touch. Over the lateral plantar aspect, he has a 3 x 3 inch wound that shows good granulation tissue, depth of which is unknown. It is somewhat tender to touch. There is no eschar noted. LABORATORY DATA: He has white count of 8600. H&H is 17 and 51.6 respectively. Chemistry is unremarkable. CRP is elevated at 10.5, and glucose is 121. DIAGNOSTIC DATA: Foot x-ray compared with previous x-ray January 04 now showed destructive changes in the fifth metatarsal head and ulceration, soft tissue swelling, suggesting osteomyelitis. His previous ABIs showed minimal decrease in blood flow in the left leg. Previous CTA showed mild atherosclerotic disease, no significant stenosis. ASSESSMENT: 1. Left foot ulcer with cellulitis. 2. Probable osteomyelitis of the left fifth metatarsal. 3. Glucose intolerance. 4. Hypertension. 5. Hyperlipidemia. 6. Neuropathy. 7. Chronic low back pain. 8. Obstructive sleep apnea. PLAN: Dr. Torres is seeing patient orthopedically and will decide on surgical debridement and/or metatarsal amputation and place on IV vancomycin in the interim. TRANSINT:[id number] Voice Confirmation ID: [id number] DOCUMENT ID: [id number] HISTORY AND PHYSICAL [id number] PHILIPPE LEON TIMOTHY MD at 1758 CC: [id number] DICTATION DATE: 01/24/17 1645 SUPERVISOR CONCRETE BLOCK PLANT: 01/25/17 0147 ADM IN [id number] [place] [address]
[2017-01-25 20:01] VITALS: BP 128/65
[2017-01-26] VITALS (12 sets, daily range): BP systolic 112–144; BP diastolic 55–79
--- NOTE | 2017-01-26 07:45 | NUR ---
ASSESSMENT PER FLOW SHEET. PT WITHOUT DISTRESS. NPO FOR PROCEDURE.
--- NOTE | 2017-01-26 14:38 | NUR ---
TO OR VIA BED
--- NOTE | 2017-01-26 16:36 | NUR ---
BACK FROM OR VIA BED.WOUND VAC IN PLACE AND FUNCTINING TO LEFT FOOT.PT WITHOUT PAIN. AT SIDE.CALL LIGHT IN REACH
--- NOTE | 2017-01-26 18:54 | NUR ---
REMAINS WITHOUT NEEDS,WITHOUT CHANGE.CONT PLAN OF CARE
[2017-01-27] VITALS (7 sets, daily range): BP systolic 110–144; BP diastolic 60–79
--- NOTE | 2017-01-27 03:47 | NUR ---
PATIENT SLEEPING SUPINE IN BED. HOB 0 DEGREES. CPAP ON. 0 S/S OF DISTRESS. IV TO RIGHT FA PATENT WITH NO REDNESS OR SWELLING. SRX2. CALL LIGHT WITHIN REACH.
[2017-01-27 12:54] LABS: ANION GAP 11.6 mmol/L (8-16); CALCIUM 9.2 mg/dL (8.5-10.1); CARBON DIOXIDE 29.3 mmol/L (21.0-32.0); CREATININE - SERUM 1.2 mg/dL (0.6-1.3); POTASSIUM - SERUM 3.9 mmol/L (3.5-5.1)
[2017-01-27 13:42] LABS: ERYTHROCYTE SEDIMENTATION RATE 13 mm/hr (0-20)
[2017-01-28 04:00] VITALS: BP 113/67
--- NOTE | 2017-01-28 05:15 | NUR ---
LYING SUPINE IN BED SLEEPING WITH CPAP ON. IV REMAINS PATENT WITH NO S/S OF INFILTRATION PRESENT. CALL LIGHT IN REACH, WILL CONTINUE WITH PLAN OF CARE.
--- NOTE | 2017-01-28 07:00 | NUR ---
REPORT RECIEVED ASSUMED CARE. PATIENT IN BED WITH IV INTACT. NO COMPLAINTS. WOUND VAC ALARMING BLOCKAGE. CHECKED AND NO BLOCKAGE NOTED. RESTARTED. PATIENT CALL LIGHT WITHIN REACH.
[2017-01-28 08:55] VITALS: BP 126/75
--- NOTE | 2017-01-28 10:45 | NUR ---
PATIENT IV INTACT. NO COMPLAINTS AT THIS TIME. WOUND VAC INTACT. CALL LIGHT WITHIN REACH.
[2017-01-28 12:48] VITALS: BP 129/76; BP 148/77
--- NOTE | 2017-01-28 14:45 | NUR ---
PATIENT IN BED WITH IV INTACT. NO COMPLAINTS AT THIS TIME. WOUND VAC RESTARTED. ALARMING BLOCKAGE AGAIN. NO BLOCKAGE NOTED. CALL LIGHT WITHIN REACH.
--- NOTE | 2017-01-28 16:20 | NUR ---
PATIENT IN BED EYES CLOSED RESTING QUIETLY. IV INTACT. CALL LIGHT WITHIN REACH.
[2017-01-28 17:35] VITALS: BP 119/73
--- NOTE | 2017-01-28 18:40 | NUR ---
PATIENT IN BED WITH IV INTACT. NO COMOLAINTS, CALL LIGHT WITHIN REACH.
--- NOTE | 2017-01-28 19:55 | NUR ---
Received patient in room on Contact Isolation for left foot wound. Wound Vac in place. Right forearm PIV is SL. Dressing to left foot is C/D/I. Patient is up ad priscila to BR. Currently on room air, denies respiratory distress or pain at this time.
[2017-01-28 20:00] VITALS: BP 133/74
--- NOTE | 2017-01-28 20:45 | NUR ---
89 yr old female admitted from ED via stretcher accompanied by transporter and male relative. Patient is admitted under services of with diagnosis of Acute Community Acquired Pneumonia and Generalized Weakness. Is allergic to PCN, has history of HTN and A-Fib. On oxygen @2L/min. Has been SOB, 02 sat on room air was 88% in ED and after placed on oxygen 02 sat 97%. Has been dizzy, with nausea and vomiting, became dehydrated, given 1 L of NS bolus in ED and started on Levaquin by IVPB. NS now infusing @100ml/hr in PIV in left hand. Ramey catheter in place draining clear yellow urine. Two blood cultures were obtained while patient was in ED, awaiting results. VSS at this time. No voiced complaints of pain or discomfort at this time. Was given Zofran by EMS earlier, no furthur nausea. Male relative remains at bedside at this time.
--- NOTE | 2017-01-28 21:03 | NUR ---
Offered analgesic but refused, states his left foot discomfort is mild and tolerable. Denied need for Restoril at HS, states he sleeps okay without it.
[2017-01-29] VITALS: BP 130/68
--- NOTE | 2017-01-29 | NUR ---
Patient is NPO for possible procedure in the morning, no orders but patient states he is to have procedure done on his left foot wound area.
--- NOTE | 2017-01-29 03:12 | NUR ---
Resting quietly, respirations easy and regular. No signs of distress. Wound Vac on, drainage pale pink color.
[2017-01-29 04:00] VITALS: BP 128/66
--- NOTE | 2017-01-29 05:07 | NUR ---
Sleeping at this time. No signs of distress.
[2017-01-29 07:57] LABS: BASOPHILS 0.4 % (0-2); EOSINOPHILS 2.5 % (0-7); HEMATOCRIT 54.7 % (42.0-54.0); HEMOGLOBIN 17.8 g/dL (13.5-17.5); IMMATURE GRANULOCYTES 0.3 % (0-5); LYMPHOCYTES 23.5 % (15-50); MCH 30.7 pg (26.0-34.0); MCHC 32.5 g/dL (31.0-37.0); MCV 94.5 fL (80.0-100.0); MEAN PLATELET VOLUME 9.7 fL (7.4-10.4); NEUTROPHILS 66.3 % (40-80); PLATELET COUNT 195 10x3/uL (130-400); RBC 5.79 10x6/uL (4.20-6.10); RDW 13.9 % (11.5-14.5); WBC 7.7 10x3/uL (4.8-10.8)
[2017-01-29 08:05] LABS: ANION GAP 9.7 mmol/L (8-16); CALCIUM 9.5 mg/dL (8.5-10.1); CARBON DIOXIDE 32.3 mmol/L (21.0-32.0); CREATININE - SERUM 1.2 mg/dL (0.6-1.3)
--- NOTE | 2017-01-29 08:05 | NUR ---
ASSESSMENT PER FLOW SHEET.PT WITHOUT DISTRESS.DENIES NEEDS. NPO
[2017-01-29 08:33] VITALS: BP 136/75
--- NOTE | 2017-01-29 12:03 | NUR ---
DECLINED FSBS,FINGERS SORE PER PT.109 THIS AM.CALL LIGHT IN REACH
[2017-01-29 13:11] VITALS: BP 122/77
--- NOTE | 2017-01-29 13:17 | OP ---
PATIENT NAME: PHILIPPE LEON MEDICAL RECORD: [id number] :53 LOCATION:D.[facility] ADMISSION DATE:01/24/17 SURGEON: HUAN JIMENEZ MD DATE OF OPERATION: 01/26/2017 PREOPERATIVE DIAGNOSIS: Osteomyelitis of the left foot fifth toe metatarsal. POSTOPERATIVE DIAGNOSIS: Osteomyelitis of the left foot fifth toe metatarsal. PROCEDURE: 1. Excisional debridement of the wound to the left foot fifth toe metatarsal to include skin, subcutaneous tissue, portions of fat, fascia, muscle and bone, less than 20 cm. 2. Additional wound VAC. SURGEON: Huan Jimenez MD ANESTHESIA: General. INTRAOPERATIVE COMPLICATIONS: None. SUMMARY OF PATHOLOGIC FINDINGS: The patient obviously had osteomyelitis consistent with the preoperative diagnosis. I better required rongeuring of the residual metatarsal head and part of the metatarsal itself. OPERATIVE SUMMARY IN DETAIL: After obtaining the appropriate preoperative orthopedic surgery consent as well as anesthetic consultation, evaluation and clearance, the patient was brought to the operating room and placed on table in supine position. After general laryngeal mask was administered, the patient's left lower extremity was prepped and draped in routine sterile fashion. Curettage rongeur, Kerrison rongeur as well as pituitaries were utilized to debride the wound of all tissue that was nonviable as well as the portions of the metatarsal head and metatarsal that were obviously infected. Copious bulb syringe was followed by placement of a wound VAC 125 mmHg at continuous intermediate level suction that is medium. Having completed this, the patient was awakened, taken to recovery in stable condition. All final needle and sponge counts were correct. TRANSINT:[id number] Voice Confirmation ID: [id number] DOCUMENT ID: [id number] HUAN JIMENEZ MD at 1317 CC: [id number] DICTATION DATE: 01/26/17 1544 SENIOR SYSTEMS ARCHITECT: 01/26/17 2318 ADM IN [facility] [address] [id number]
--- NOTE | 2017-01-29 15:16 | NUR ---
CONSENTS TO CHART,PREOP MEDS ORDERED. HEPI CLENS BATH IN PROGRESS
--- NOTE | 2017-01-29 18:23 | NUR ---
STILL WAITING TO GO TO SURGERY.WITHOUT CHANGE.CONT PLAN OF CARE
[2017-01-29 21:47] VITALS: BP 164/89
--- NOTE | 2017-01-30 03:12 | NUR ---
REC'D PATIENT SITTING UP IN BED WAITING TO GO TO SURGERY. ALERT AND ORIENTED X4. DENIES PAIN AT THIS TIME. IS NPO. NO DISTRESS NOTED. IS AT BEDSIDE. DENIED FURTHER NEEDS AT THIS TIME. INSTRUCTED TO CALL IF NEEDED ANYTHING. BED LOW, LOCKED CALL LIGHT IN REACH.
[2017-01-30 04:00] VITALS: BP 134/77
--- NOTE | 2017-01-30 04:15 | NUR ---
PATIENT SLEEPING WITH NO DISTRESS NOTED. AGREE WITH DESKTOP PUBLISHING OPERATOR ASSESSMENT.
--- NOTE | 2017-01-30 05:45 | NUR ---
PATIENT IS RESTING IN BED. SALINE LOCKED HIM AFTER ANTIBOITIC. NO DISTRESS NOTED. DENIES PAIN AT THIS TIME. DENIED FURTHER NEEDS AT THIS TIME. INSTRUCTED TO CALL IF NEEDED ANYTHING. BE LOW, LOCKED, CALL LIGHT IN REACH.
[2017-01-30 07:03] LABS: ERYTHROCYTE SEDIMENTATION RATE 4 mm/hr (0-20)
--- NOTE | 2017-01-30 07:40 | NUR ---
ASSESSMENT PER FLOW HEET.PT WITHOUT DISTRESS.CALL LIGHT IN REACH.DENIES NEEDS.
[2017-01-30] MEDS ORDERED: VIBRAMYCIN 100100 MG PO (08:23)
--- NOTE | 2017-01-30 08:45 | NUR ---
AM MEDS.PT WITHOUT DISTRESS. HERE TO SEE PT.CALL LIGHT IN REACH
[2017-01-30 09:02] VITALS: BP 144/79
[2017-01-30] MEDS ORDERED: Ancef 2 GM/Dextrose IV (09:05)
--- NOTE | 2017-01-30 10:54 | NUR ---
UP TO SHOWER WITH ASSIST.
[2017-01-30] MEDS ORDERED: ROCEPHIN 2 GM/D52 G1 IV ×2 (13:58→14:01)
--- NOTE | 2017-01-30 14:11 | NUR ---
AMBULATING WITH PT.
--- NOTE | 2017-01-30 15:18 | NUR ---
CM REASSESSMENT NOTE: PATIENT IS DISCHARGING HOME TODAY- DRIVING HIM HOME. PATIENT IS CURRENT WITH [facility] AND THEY ARE AWARE OF PATIENT DISCHARGING WITH IV ABX. [facility] IN [place] IS SUPPLYING THE ABX AND WILL DELIVER TOMORROW TO PATIENTS HOME. PATIENT IS GETTING 1ST DOSE OF ANTIBIOTIC HERE IN HOSPITAL BEFORE DISCHARGE. PATIENT HAD NO OTHER NEEDS FOR DISCHARGE.
--- NOTE | 2017-01-30 17:00 | NUR ---
DISCHARGE INSTRUCTIONS,STATES UNDERSTANDING.
--- NOTE | 2017-01-30 17:08 | NUR ---
LEFT UNIT VIA WHEELCHAIR FOR TRANSPORT HOME.
--- NOTE | 2017-01-31 17:23 | DS ---
PATIENT:PHILIPPE LEON :53 MEDICAL RECORD: [id number] DISCHARGE SUMMARY ADMISSION DATE: 01/24/17 DISCHARGE DATE: 01/30/17 DISCHARGE DIAGNOSES: 1. Left foot ulcer with cellulitis and abscess. 2. Osteomyelitis, left fifth metatarsal. 3. Diabetes mellitus. 4. Hypertension. 5. Hyperlipidemia. 6. Neuropathy. CONSULTANTS: Dr. Fred Torres, orthopedist. PROCEDURE PERFORMED: Left fifth metatarsectomy and wound debridement times 2. HOSPITAL COURSE: A 61-year-old male referred from the wound clinic because of increasing concerns for osteomyelitis of his left foot. X-rays confirmed that. He underwent open debridement and left fifth metatarsectomy. Wound VAC was placed for 48 hours. He went back to surgery yesterday and wound appeared excellent. Minimal debridement was carried out and wound was packed with iodoform gauze. Plan now is to discharge the patient home, have follow up with Dr. Torres in 1 week, on oral doxycycline for his Staph aureus wound culture. He will be limited weightbearing with a walker and heel touching. DISCHARGE MEDICATIONS: Doxycycline 100 mg b.i.d. for 10 days, Zyloprim 300 mg daily, [place] 10/325 one q.6 hours for pain, Zanaflex 4 mg q.8 hours p.r.n. muscle spasm, metformin 500 mg p.o. b.i.d. a.c., lisinopril 20/25 one q.a.m., pravastatin 40 mg at bedtime, gabapentin 100 mg p.o. t.i.d. DIET: ADA, 2000-calorie, low cholesterol. FOLLOWUP: Return to clinic to see Dr. Luna in [address] Torres in 1 week. TRANSINT:[id number] Voice Confirmation ID: [id number] DOCUMENT ID: [id number] YAMILET WILSON MD at 1723 CC: [id number] DICTATION DATE: 01/30/17824 WEB CONTENT & SOCIAL MEDIA MANAGER: 01/31/1743 DIS IN 01/30/17 [facility] [address] [place] [address]
--- NOTE | 2017-02-01 13:28 | OP ---
PATIENT NAME: PHILIPPE LEON MEDICAL RECORD: [id number] :53 LOCATION:D.[facility] ADMISSION DATE:01/24/17 SURGEON: HUAN JIMENEZ MD DATE OF OPERATION: 01/29/2017 PREOPERATIVE DIAGNOSIS: Osteomyelitis of the left fifth metatarsal head with an open wound. POSTOPERATIVE DIAGNOSIS: Osteomyelitis of the left fifth metatarsal head with an open wound. PROCEDURES: Excisional debridement of the left fifth metatarsal head to include skin, subcutaneous tissue, portions of fat, fascia, muscle and bone. SURGEON: Huan Jimenez MD. ANESTHESIA: General. INTRAOPERATIVE COMPLICATIONS: None. SUMMARY OF PATHOLOGIC FINDINGS: The wound was much immersion metal cleaner today and did not require replacement of the wound VAC. OPERATIVE SUMMARY IN DETAIL: After obtaining the appropriate preoperative orthopedic surgery consent as well as anesthetic consultation, evaluation and clearance, the patient was brought to the operating room and placed on the operating table in supine position. After adequate general laryngeal mask was administered, the patient's left lower extremity was prepped and draped in a routine sterile fashion. The previously placed wound VAC had been removed. Serial and sequential curettage was utilized to debride any necrotic tissue back to bone and the patient's wound bled nicely. Bulb syringe was utilized to copiously flush out the wound and the wound was then packed with one-inch iodoform gauze. Having completed this, sterile dressings were applied. The patient was awakened, taken to recovery in stable condition. All final needle and sponge counts were correct. TRANSINT:[id number] Voice Confirmation ID: [id number] DOCUMENT ID: [id number] HUAN JIMENEZ MD at 1328 CC: [id number] DICTATION DATE: 01/29/172100 RECTIFYING ATTENDANT: 01/30/17 0335 DIS IN 01/30/17 [id number] [place] [address]
== END 2017-01-30 17:08 | disposition home health service (06) | DRG 857 ==
LOC: D.MS 13:02
PROVIDERS: Orthopaedic Surgery; Student in an Organized Health Care Education/Training Program; ADMIT Family Medicine
PROC: 0QBP0ZZ Excision of Left Metatarsal, Open Approach (ICD-10-PCS; principal; 2017-01-26 14:15)
PROC: 0QBP0ZZ Excision of Left Metatarsal, Open Approach (ICD-10-PCS; 2017-01-29)
PROC: 05H433Z Insertion of Infusion Device into Left Innominate Vein, Percutaneous Approach (ICD-10-PCS; 2017-01-30)
PROC: B54NZZA Ultrasonography of Left Upper Extremity Veins, Guidance (ICD-10-PCS; 2017-01-30)
DX: T81.4XXA Infection following a procedure, initial encounter (principal); L03.116 Cellulitis of left lower limb; M86.9 Osteomyelitis, unspecified; Z68.41 Body mass index [BMI] 40.0-44.9, adult; E11.628 Type 2 diabetes mellitus with other skin complications; E11.69 Type 2 diabetes mellitus with other specified complication; E11.40 Type 2 diabetes mellitus with diabetic neuropathy, unspecified; I10 Essential (primary) hypertension; E78.5 Hyperlipidemia, unspecified; G47.33 Obstructive sleep apnea (adult) (pediatric); E66.01 Morbid (severe) obesity due to excess calories

== ENCOUNTER → 2017-03-06 15:41 | Outpatient (CLI) | payer MEDICARE ==
[2017-01-25 14:15] VITALS: BMI 44.4
[~2017-03-06 15:41] MED LIST changes: +Ancef 2 GM/Dextrose IV; +ROCEPHIN 2 GM/D52 G1 IV; +VIBRAMYCIN 100100 MG PO
[2017-03-06 19:58] LABS: BASOPHILS 0.6 % (0-2); IMMATURE GRANULOCYTES 0.2 % (0-5); LYMPHOCYTES 30.4 % (15-50); MCH 31.9 pg (26.0-34.0); MCV 93.8 fL (80.0-100.0); MEAN PLATELET VOLUME 11.1 fL (7.4-10.4); MONOCYTES 7.6 % (2-11); NEUTROPHILS 55.2 % (40-80); PLATELET COUNT 184 10x3/uL (130-400); RBC 5.65 10x6/uL (4.20-6.10); RDW 13.6 % (11.5-14.5); WBC 6.6 10x3/uL (4.8-10.8)
[2017-03-06 20:11] LABS: C-REACTIVE PROTEIN 1.3 mg/dL (0.0-0.9); CREATININE - SERUM 1.1 mg/dL (0.6-1.3)
[2017-03-06 21:34] LABS: ERYTHROCYTE SEDIMENTATION RATE 1 mm/hr (0-20)
== END | disposition home or self-care (01) ==
LOC: D.LABREF 15:41
PROVIDERS: Student in an Organized Health Care Education/Training Program
DX: M86.9 Osteomyelitis, unspecified (principal)

== ENCOUNTER 2017-11-28 14:38 | Inpatient (IN) | payer MEDICARE ==
--- NOTE | ~2017-11-28 | OP ---
PATIENT NAME: PHILIPPE LEON MEDICAL RECORD: [id number] :53 LOCATION:D.M2 D.2137 ADMISSION DATE:11/28/17 SURGEON: HUAN JIMENEZ MD DATE OF OPERATION: 12/03/2017 PREOPERATIVE DIAGNOSIS: Osteomyelitis of the right foot. POSTOPERATIVE DIAGNOSIS: Osteomyelitis of the right foot. PROCEDURE: Excisional debridement of skin and subcutaneous tissue, portions of fat, fascia, muscle and bone. SURGEON: Huan Jimenez MD ANESTHESIA: General. INTRAOPERATIVE COMPLICATIONS: None. SUMMARY OF PATHOLOGIC FINDINGS: Essentially, the patient had osteomyelitis of the toe that required curettage and rongeur debridement, mostly at the fifth metatarsophalangeal joint. OPERATIVE SUMMARY IN DETAIL: After obtaining the appropriate preoperative orthopedic surgery consent as well as anesthetic consultation, evaluation and clearance, the patient was brought to the operating room and placed on the operating table in supine position. After general laryngeal mask airway was administered, tourniquet was placed about the proximal aspect of the right lower extremity. Right lower extremity was prepped and draped in routine sterile fashion. The leg was elevated and exsanguinated, and tourniquet was inflated to 250 mmHg. The incision was made mid lateral on the right foot just at the MTP joint and purulence was immediately noted. Cultures were taken. This was opened up and the fifth metatarsal head was essentially floating and not connected. This was taken out with a rongeur, curette as well as a small sagittal saw to make a clean edge. Having completed this, this was copiously irrigated with bulb syringe. The plantar wound was evaluated and found to be through and through. For this reason, packing was placed superiorly and inferiorly with quarter-inch iodoform gauze. Having completed this, sterile dressings were applied. The patient was awakened and taken to the recovery room in stable condition. All final needle and sponge counts were correct. TRANSINT:[id number] Voice Confirmation ID: [id number] DOCUMENT ID: [id number] HUAN JIMENEZ MD at 1601 CC: [id number] DICTATION DATE: 12/19/17 1602 BOOKKEEPERS SUPERVISOR: 12/19/171915 DIS IN 12/07/17 [facility] [address] [place] [address]
[2017-11-28 17:37] LABS: BASOPHILS 0.3 % (0-2); EOSINOPHILS 3.3 % (0-7); HEMATOCRIT 57.9 % (42.0-54.0); HEMOGLOBIN 19.6 g/dL (13.5-17.5); IMMATURE GRANULOCYTES 0.5 % (0-5); LYMPHOCYTES 15.3 % (15-50); MCH 30.8 pg (26.0-34.0); MCHC 33.9 g/dL (31.0-37.0); MEAN PLATELET VOLUME 9.9 fL (7.4-10.4); MONOCYTES 7.6 % (2-11); RBC 6.36 10x6/uL (4.20-6.10); RDW 14.1 % (11.5-14.5); WBC 9.4 10x3/uL (4.8-10.8)
[2017-11-28 17:38] LABS: PLATELET COUNT 246 10x3/uL (130-400)
[2017-11-28 17:57] LABS: ALBUMIN 3.3 g/dL (3.4-5.0); ANION GAP 9.8 mmol/L (8-16); BILIRUBIN - TOTAL 0.58 mg/dL (0.2-1.3); CALCIUM 9.2 mg/dL (8.5-10.1); CARBON DIOXIDE 32.2 mmol/L (21.0-32.0); CREATININE - SERUM 1.2 mg/dL (0.6-1.3); PROTEIN - SERUM 8.3 g/dL (6.4-8.2)
[2017-11-28 19:00] VITALS: BP 97/64
[2017-11-29 04:00] VITALS: BP 130/69
[2017-11-29 05:29] LABS: BASOPHILS 0.3 % (0-2); EOSINOPHILS 3.9 % (0-7); HEMATOCRIT 55.6 % (42.0-54.0); HEMOGLOBIN 18.6 g/dL (13.5-17.5); IMMATURE GRANULOCYTES 0.5 % (0-5); LYMPHOCYTES 22.2 % (15-50); MCH 30.5 pg (26.0-34.0); MCHC 33.5 g/dL (31.0-37.0); MCV 91.3 fL (80.0-100.0); MEAN PLATELET VOLUME 10.1 fL (7.4-10.4); MONOCYTES 8.4 % (2-11); NEUTROPHILS 64.7 % (40-80); PLATELET COUNT 239 10x3/uL (130-400); RBC 6.09 10x6/uL (4.20-6.10); RDW 14.5 % (11.5-14.5); WBC 9.1 10x3/uL (4.8-10.8)
[2017-11-29 05:53] LABS: ANION GAP 14.9 mmol/L (8-16); CARBON DIOXIDE 26.8 mmol/L (21.0-32.0); CREATININE - SERUM 1.2 mg/dL (0.6-1.3); POTASSIUM - SERUM 3.7 mmol/L (3.5-5.1)
[2017-11-29 07:44] VITALS: BP 148/88
[2017-11-29 10:57] VITALS: BP 136/76
[2017-11-29 14:57] VITALS: BP 129/77
[2017-11-29 21:46] VITALS: BP 121/60
[2017-11-30 00:33] VITALS: BP 120/74
[2017-11-30 04:51] VITALS: BP 118/56
[2017-11-30 05:39] LABS: BASOPHILS 0.4 % (0-2); EOSINOPHILS 4.3 % (0-7); HEMATOCRIT 56.2 % (42.0-54.0); HEMOGLOBIN 19.1 g/dL (13.5-17.5); IMMATURE GRANULOCYTES 0.6 % (0-5); LYMPHOCYTES 24.3 % (15-50); MCH 30.8 pg (26.0-34.0); MCV 90.5 fL (80.0-100.0); MEAN PLATELET VOLUME 9.8 fL (7.4-10.4); MONOCYTES 6.4 % (2-11); PLATELET COUNT 233 10x3/uL (130-400); RBC 6.21 10x6/uL (4.20-6.10); RDW 14.4 % (11.5-14.5); WBC 7.8 10x3/uL (4.8-10.8)
[2017-11-30 06:08] LABS: ANION GAP 12.4 mmol/L (8-16); CALCIUM 9.4 mg/dL (8.5-10.1); CARBON DIOXIDE 27.4 mmol/L (21.0-32.0); CREATININE - SERUM 1.1 mg/dL (0.6-1.3); POTASSIUM - SERUM 3.8 mmol/L (3.5-5.1)
[2017-11-30 07:47] VITALS: BP 129/45
[2017-11-30 10:40] VITALS: BP 132/71
[2017-11-30 15:07] VITALS: BP 126/53
[2017-11-30 20:54] VITALS: BP 112/43
[2017-12-01 00:53] VITALS: BP 133/58
[2017-12-01 04:42] LABS: BASOPHILS 0.2 % (0-2); EOSINOPHILS 5.5 % (0-7); HEMATOCRIT 55.1 % (42.0-54.0); HEMOGLOBIN 18.6 g/dL (13.5-17.5); IMMATURE GRANULOCYTES 0.5 % (0-5); LYMPHOCYTES 25.2 % (15-50); MCH 30.6 pg (26.0-34.0); MCHC 33.8 g/dL (31.0-37.0); MCV 90.6 fL (80.0-100.0); MEAN PLATELET VOLUME 9.8 fL (7.4-10.4); NEUTROPHILS 61.6 % (40-80); PLATELET COUNT 228 10x3/uL (130-400); RBC 6.08 10x6/uL (4.20-6.10); RDW 14.4 % (11.5-14.5); WBC 8.1 10x3/uL (4.8-10.8)
[2017-12-01 04:47] VITALS: BP 110/43
[2017-12-01 04:53] LABS: ANION GAP 10.5 mmol/L (8-16); CALCIUM 9.1 mg/dL (8.5-10.1); CARBON DIOXIDE 28.2 mmol/L (21.0-32.0); CREATININE - SERUM 1.1 mg/dL (0.6-1.3); POTASSIUM - SERUM 3.7 mmol/L (3.5-5.1)
[2017-12-01 08:10] VITALS: BP 123/66
[2017-12-01 11:31] VITALS: BP 118/72
[2017-12-01 15:34] VITALS: BP 139/71
[2017-12-01 19:00] VITALS: BP 116/59
[2017-12-02] VITALS: BP 149/71
[2017-12-02 04:00] VITALS: BP 127/67
[2017-12-02 06:08] LABS: BASOPHILS 0.4 % (0-2); EOSINOPHILS 5.3 % (0-7); HEMATOCRIT 56.5 % (42.0-54.0); HEMOGLOBIN 18.7 g/dL (13.5-17.5); IMMATURE GRANULOCYTES 0.6 % (0-5); LYMPHOCYTES 29.2 % (15-50); MCH 30.3 pg (26.0-34.0); MCHC 33.1 g/dL (31.0-37.0); MCV 91.6 fL (80.0-100.0); MEAN PLATELET VOLUME 9.7 fL (7.4-10.4); MONOCYTES 6.9 % (2-11); NEUTROPHILS 57.6 % (40-80); PLATELET COUNT 214 10x3/uL (130-400); RBC 6.17 10x6/uL (4.20-6.10); RDW 14.5 % (11.5-14.5); WBC 7.8 10x3/uL (4.8-10.8)
[2017-12-02 06:32] LABS: ANION GAP 9.5 mmol/L (8-16); CALCIUM 9.3 mg/dL (8.5-10.1); CREATININE - SERUM 1.1 mg/dL (0.6-1.3); POTASSIUM - SERUM 3.5 mmol/L (3.5-5.1)
[2017-12-02 08:24] VITALS: BP 131/79
[2017-12-02 11:36] VITALS: BP 98/52
[2017-12-02 15:41] VITALS: BP 114/49
[2017-12-02 20:00] VITALS: BP 152/81
[2017-12-03] VITALS (7 sets, daily range): BP systolic 112–148; BP diastolic 59–90
[2017-12-03 05:54] LABS: BASOPHILS 0.5 % (0-2); EOSINOPHILS 5.7 % (0-7); HEMATOCRIT 57.7 % (42.0-54.0); HEMOGLOBIN 19.3 g/dL (13.5-17.5); IMMATURE GRANULOCYTES 0.5 % (0-5); LYMPHOCYTES 23.6 % (15-50); MCH 30.7 pg (26.0-34.0); MCHC 33.4 g/dL (31.0-37.0); MCV 91.9 fL (80.0-100.0); MEAN PLATELET VOLUME 9.7 fL (7.4-10.4); MONOCYTES 7.3 % (2-11); NEUTROPHILS 62.4 % (40-80); PLATELET COUNT 221 10x3/uL (130-400); RBC 6.28 10x6/uL (4.20-6.10); RDW 14.6 % (11.5-14.5); WBC 8.4 10x3/uL (4.8-10.8)
[2017-12-03 06:26] LABS: ANION GAP 13.3 mmol/L (8-16); CALCIUM 8.8 mg/dL (8.5-10.1); CARBON DIOXIDE 26.4 mmol/L (21.0-32.0); CREATININE - SERUM 1.1 mg/dL (0.6-1.3); POTASSIUM - SERUM 3.7 mmol/L (3.5-5.1)
[2017-12-04 04:00] VITALS: BP 170/85
[2017-12-04 05:43] LABS: BASOPHILS 0.3 % (0-2); EOSINOPHILS 5.3 % (0-7); HEMATOCRIT 56.8 % (42.0-54.0); HEMOGLOBIN 18.8 g/dL (13.5-17.5); IMMATURE GRANULOCYTES 0.4 % (0-5); LYMPHOCYTES 20.3 % (15-50); MCH 30.6 pg (26.0-34.0); MCHC 33.1 g/dL (31.0-37.0); MCV 92.4 fL (80.0-100.0); MEAN PLATELET VOLUME 9.8 fL (7.4-10.4); MONOCYTES 7.9 % (2-11); NEUTROPHILS 65.8 % (40-80); PLATELET COUNT 216 10x3/uL (130-400); RBC 6.15 10x6/uL (4.20-6.10); RDW 14.7 % (11.5-14.5); WBC 9.7 10x3/uL (4.8-10.8)
[2017-12-04 06:02] LABS: ANION GAP 11.9 mmol/L (8-16); CALCIUM 9.1 mg/dL (8.5-10.1); POTASSIUM - SERUM 3.9 mmol/L (3.5-5.1)
[2017-12-04 06:04] LABS: CREATININE - SERUM 1.4 mg/dL (0.6-1.3)
[2017-12-04 08:30] VITALS: BP 140/72
[2017-12-04 11:53] VITALS: BP 142/76
[2017-12-04 16:02] VITALS: BP 146/62
[2017-12-04 20:00] VITALS: BP 119/75
[2017-12-05] VITALS: BP 170/89
[2017-12-05 04:00] VITALS: BP 162/80
[2017-12-05 06:20] LABS: BASOPHILS 0.3 % (0-2); EOSINOPHILS 3.6 % (0-7); HEMATOCRIT 58.3 % (42.0-54.0); HEMOGLOBIN 19.2 g/dL (13.5-17.5); IMMATURE GRANULOCYTES 0.7 % (0-5); LYMPHOCYTES 23.5 % (15-50); MCH 30.2 pg (26.0-34.0); MCHC 32.9 g/dL (31.0-37.0); MCV 91.7 fL (80.0-100.0); MEAN PLATELET VOLUME 9.7 fL (7.4-10.4); MONOCYTES 7.7 % (2-11); NEUTROPHILS 64.2 % (40-80); PLATELET COUNT 187 10x3/uL (130-400); RBC 6.36 10x6/uL (4.20-6.10); RDW 14.8 % (11.5-14.5); WBC 9.1 10x3/uL (4.8-10.8)
[2017-12-05 06:36] LABS: ANION GAP 11.8 mmol/L (8-16); CALCIUM 9.1 mg/dL (8.5-10.1); CREATININE - SERUM 1.2 mg/dL (0.6-1.3); POTASSIUM - SERUM 3.8 mmol/L (3.5-5.1)
[2017-12-05 08:05] VITALS: BP 126/66
[2017-12-05 11:21] VITALS: BP 116/61
[2017-12-05 16:02] VITALS: BP 152/89
[2017-12-05 16:18] LABS: AEROBE ID Final report (())
[2017-12-05 19:00] VITALS: BP 148/74
[2017-12-06] VITALS: BP 130/80
[2017-12-06 03:35] VITALS: BP 133/67
[2017-12-06 05:14] LABS: BASOPHILS 0.3 % (0-2); EOSINOPHILS 2.7 % (0-7); HEMATOCRIT 56.7 % (42.0-54.0); HEMOGLOBIN 18.8 g/dL (13.5-17.5); IMMATURE GRANULOCYTES 0.8 % (0-5); LYMPHOCYTES 27.8 % (15-50); MCH 30.3 pg (26.0-34.0); MCHC 33.2 g/dL (31.0-37.0); MCV 91.5 fL (80.0-100.0); MEAN PLATELET VOLUME 9.7 fL (7.4-10.4); MONOCYTES 7.7 % (2-11); NEUTROPHILS 60.7 % (40-80); PLATELET COUNT 196 10x3/uL (130-400); RDW 14.8 % (11.5-14.5); WBC 7.7 10x3/uL (4.8-10.8)
[2017-12-06 05:42] LABS: ANION GAP 11.5 mmol/L (8-16); CALCIUM 9.3 mg/dL (8.5-10.1); CARBON DIOXIDE 30.3 mmol/L (21.0-32.0); CREATININE - SERUM 1.3 mg/dL (0.6-1.3); POTASSIUM - SERUM 3.8 mmol/L (3.5-5.1)
[2017-12-06 07:59] VITALS: BP 120/61
[2017-12-06 11:12] VITALS: BP 150/79
[2017-12-06 13:05] VITALS: BMI 51.9
[2017-12-06 15:11] VITALS: BP 127/73
[2017-12-06 20:00] VITALS: BP 137/45
[2017-12-07 04:00] VITALS: BP 113/61
[2017-12-07] MEDS ORDERED: BACTRIM DS TABL1 TAB PO (08:29)
[2017-12-07] MEDS ORDERED: VIBRAMYCIN 100100 MG PO (08:29)
[2017-12-07 08:53] VITALS: BP 107/63
== END 2017-12-07 13:06 | disposition home health service (06) | DRG 988 ==
LOC: D.ER 14:38 → D.EDHOLD 21:52 → D.M2 21:52
PROVIDERS: Emergency Medicine; Family Medicine; Internal Medicine Nephrology; Orthopaedic Surgery; Physician Assistant
PROC: 0QTN0ZZ Resection of Right Metatarsal, Open Approach (ICD-10-PCS; principal; 2017-11-28)
DX: E11.69 Type 2 diabetes mellitus with other specified complication (principal); L97.516 Non-pressure chronic ulcer of other part of right foot with bone involvement without evidence of necrosis; M86.171 Other acute osteomyelitis, right ankle and foot; L03.115 Cellulitis of right lower limb; Z68.43 Body mass index [BMI] 50.0-59.9, adult; E11.628 Type 2 diabetes mellitus with other skin complications; E11.621 Type 2 diabetes mellitus with foot ulcer; I10 Essential (primary) hypertension; E78.5 Hyperlipidemia, unspecified; N17.9 Acute kidney failure, unspecified; G89.29 Other chronic pain; E66.9 Obesity, unspecified

== ENCOUNTER 2017-12-18 20:44 | Emergency (ER) | payer MEDICARE | END 2017-12-18 22:10 | disposition home or self-care (01) | LOC: D.ER 20:44 | DX: S60.861A Insect bite (nonvenomous) of right wrist, initial encounter (principal); W57.XXXA Bitten or stung by nonvenomous insect and other nonvenomous arthropods, initial encounter; Y93.89 Activity, other specified; Y92.89 Other specified places as the place of occurrence of the external cause; I10 Essential (primary) hypertension ==

== ENCOUNTER → 2018-02-12 16:46 | Outpatient (CLI) | payer MEDICARE | END | disposition home or self-care (01) | LOC: D.LABREF 16:46 | DX: E11.9 Type 2 diabetes mellitus without complications (principal); M86.9 Osteomyelitis, unspecified ==

== ENCOUNTER 2018-03-26 14:32 | Emergency (ER) | payer MEDICARE ==
[~2018-03-26] VITALS: Ht 182.9 cm; Wt 175.0 kg
[2018-03-26 14:51] VITALS: Ht 182.9 cm; Wt 175.0 kg
[2018-03-26] MEDS ORDERED: TYLENOL W/CODEI1 TAB PO (19:07)
[2018-03-26 19:14] VITALS: BP 135/72
== END 2018-03-26 19:15 | disposition home or self-care (01) ==
LOC: D.ER 14:32
DX: S91.112A Laceration without foreign body of left great toe without damage to nail, initial encounter (principal); W01.0XXA Fall on same level from slipping, tripping and stumbling without subsequent striking against object, initial encounter; Y93.89 Activity, other specified; Y92.019 Unspecified place in single-family (private) house as the place of occurrence of the external cause

== ENCOUNTER 2019-01-16 17:49 | Emergency (ER) | payer MEDICARE ==
[~2019-01-16] VITALS: Ht 198.1 cm; Wt 175.0 kg
[~2019-01-16 17:49] MED LIST changes: +TYLENOL W/CODEI1 TAB PO
[2019-01-16 17:58] VITALS: Ht 198.1 cm; Wt 175.0 kg
[2019-01-16] MEDS ORDERED: MECLIZINE HCL25 MG PO (18:02)
[2019-01-16] MEDS ORDERED: COLCRYS0.6 MG PO (18:03)
[2019-01-16] MEDS ORDERED: TORADOL10 MG PO (19:05)
[2019-01-16 19:19] VITALS: BP 149/74
== END 2019-01-16 19:19 | disposition home or self-care (01) ==
LOC: D.ER 17:49
DX: M17.11 Unilateral primary osteoarthritis, right knee (principal)

== ENCOUNTER 2019-06-16 15:46 | Emergency (ER) | payer MEDICARE ==
[~2019-06-16] VITALS: Ht 198.1 cm; Wt 104.5 kg
[~2019-06-16 15:46] MED LIST changes: +COLCRYS0.6 MG PO; +MECLIZINE HCL25 MG PO; +TORADOL10 MG PO
[2019-06-16 15:55] VITALS: Ht 198.1 cm; Wt 104.5 kg
[2019-06-16 16:56] LABS: BASOPHILS 0.5 % (0-2); EOSINOPHILS 1.6 % (0-7); HEMATOCRIT 49.3 % (42.0-54.0); HEMOGLOBIN 17.4 g/dL (13.5-17.5); IMMATURE GRANULOCYTES 0.3 % (0-5); LYMPHOCYTES 24.9 % (15-50); MCHC 35.3 g/dL (31.0-37.0); MCV 87.9 fL (80.0-100.0); MEAN PLATELET VOLUME 9.9 fL (7.4-10.4); MONOCYTES 6.7 % (2-11); PLATELET COUNT 199 10x3/uL (130-400); RBC 5.61 10x6/uL (4.20-6.10); RDW 14.5 % (11.5-14.5); WBC 8.9 10x3/uL (4.8-10.8)
[2019-06-16 17:10] LABS: ALBUMIN 3.8 g/dL (3.4-5.0); ANION GAP 9.2 mmol/L (8-16); BILIRUBIN - TOTAL 0.6 mg/dL (0.2-1.3); CALCIUM 9.3 mg/dL (8.5-10.1); CARBON DIOXIDE 30.9 mmol/L (21.0-32.0); CREATININE - SERUM 1.3 mg/dL (0.6-1.3); POTASSIUM - SERUM 4.1 mmol/L (3.5-5.1); PROTEIN - SERUM 7.4 g/dL (6.4-8.2)
[2019-06-16 19:01] LABS: PRO BNP 22 pg/mL (0-125); TROPONIN-I < 0.017 ng/mL (0.000-0.060)
[2019-06-16] MEDS ORDERED: NORVASC5 MG PO (19:16)
[2019-06-16] MEDS ORDERED: HYDROCHLOROTHIA25 MG PO (19:16)
[2019-06-16 19:47] VITALS: BP 103/65
== END 2019-06-16 19:47 | disposition home or self-care (01) ==
LOC: D.ER 15:46
PROVIDERS: Family Medicine
DX: R06.00 Dyspnea, unspecified (principal); R42 Dizziness and giddiness; R05 Cough; E11.9 Type 2 diabetes mellitus without complications; I10 Essential (primary) hypertension

== ENCOUNTER 2020-05-16 12:38 | Inpatient (IN) | payer MEDICARE ==
[~2020-05-16] VITALS: Ht 198.1 cm; Wt 124.7 kg
[~2020-05-16 12:38] MED LIST changes: +HYDROCHLOROTHIA25 MG PO; +NORVASC5 MG PO
[2020-05-16 13:34] LABS: BASOPHILS 0.1 % (0-2); HEMATOCRIT 50.3 % (42.0-54.0); HEMOGLOBIN 17.2 g/dL (13.5-17.5); IMMATURE GRANULOCYTES 0.6 % (0-5); LYMPHOCYTES 4.9 % (15-50); MCHC 34.2 g/dL (31.0-37.0); MCV 90.6 fL (80.0-100.0); MEAN PLATELET VOLUME 9.9 fL (7.4-10.4); MONOCYTES 2.3 % (2-11); NEUTROPHILS 91.1 % (40-80); PLATELET COUNT 205 10x3/uL (130-400); RBC 5.55 10x6/uL (4.20-6.10); RDW 13.2 % (11.5-14.5); WBC 16.2 10x3/uL (4.8-10.8)
[2020-05-16 13:47] LABS: APTT 26.7 SECONDS (22.8-39.4); PROTIME 13.1 SECONDS (11.6-15.0)
[2020-05-16 13:49] LABS: CALC OSMOLALITY 280 mosm/kg (275-300); CALCIUM 9.3 mg/dL (8.5-10.1); CARBON DIOXIDE 25.9 mmol/L (21.0-32.0); CHLORIDE - SERUM 100 mmol/L (98-107); CREATININE - SERUM 1.4 mg/dL (0.6-1.3); GLUCOSE 146 mg/dL (74-106); POTASSIUM - SERUM 3.3 mmol/L (3.5-5.1); SODIUM 140 mmol/L (136-145); UREA NITROGEN 11 mg/dL (7-18); eGFR NON AFRICAN AMERICAN 54 mL/min (90-120)
[2020-05-16 14:06] LABS: ALBUMIN 3.9 g/dL (3.4-5.0); ALKALINE PHOSPHATASE 109 U/L (30-120); ALT (SGPT) 49 U/L (10-68); BILIRUBIN - TOTAL 0.54 mg/dL (0.2-1.3); CKMB 2.2 U/L (0.0-3.6); CREATINE KINASE 204 UL (21-232)
[2020-05-16 14:07] LABS: TROPONIN-I < 0.017 ng/mL (0.000-0.060)
[2020-05-16 14:09] VITALS: BP 115/57
[2020-05-16 14:21] LABS: BILIRUBIN NEGATIVE (NEGATIVE); GLUCOSE NEGATIVE (NEGATIVE); KETONE SMALL mg/dL (NEGATIVE); NITRITE NEGATIVE (NEGATIVE); UROBILINOGEN NORMAL (NORMAL)
[2020-05-16 14:45] VITALS: BP 123/73
[2020-05-16 15:51] VITALS: BP 117/61
[2020-05-16 16:00] VITALS: BP 115/60
[2020-05-16 18:17] VITALS: BP 136/116
--- NOTE | 2020-05-16 18:27 | NUR ---
PT ARRIVED VIA STRETCHER, AMBULATED TO BED IN ROOM BY SELF. NO DIFFICULTIES NOTED. PT IS ALERT AND ORIETNED. SHORTNESS OF BREATH ON EXERTION. PT RESULTS ARE COVID NEGATIVE. NO COMPLAITNS RO CONCERNS AT THIS TIME. CL IN REACH, SRX2.
[2020-05-16 20:48] VITALS: BP 98/54
[2020-05-17 00:30] VITALS: BP 132/61
[2020-05-17 04:30] VITALS: BP 104/52
[2020-05-17 05:46] LABS: ALBUMIN 3.1 g/dL (3.4-5.0); BILIRUBIN - TOTAL 0.63 mg/dL (0.2-1.3); CALCIUM 8.5 mg/dL (8.5-10.1); CARBON DIOXIDE 28.8 mmol/L (21.0-32.0); CREATININE - SERUM 1.4 mg/dL (0.6-1.3); PROTEIN - SERUM 6.8 g/dL (6.4-8.2)
[2020-05-17 05:51] LABS: HEMATOCRIT 44.3 % (42.0-54.0); HEMOGLOBIN 14.5 g/dL (13.5-17.5); MCH 30.1 pg (26.0-34.0); MCHC 32.7 g/dL (31.0-37.0); MCV 91.9 fL (80.0-100.0); MEAN PLATELET VOLUME 10.6 fL (7.4-10.4); PLATELET COUNT 201 10x3/uL (130-400); RBC 4.82 10x6/uL (4.20-6.10); RDW 13.5 % (11.5-14.5); WBC 28.4 10x3/uL (4.8-10.8)
[2020-05-17 06:00] LABS: POTASSIUM - SERUM 3.8 mmol/L (3.5-5.1)
[2020-05-17 08:00] VITALS: BP 117/62
--- NOTE | 2020-05-17 08:26 | HP ---
PATIENT: PHILIPPE LEON MEDICAL RECORD: [id number] ACCOUNT: [id number] LOCATION:[address] : 53 ADMISSION DATE: 05/16/20 PCP: MARCE DANIEL MD HISTORY AND PHYSICAL EXAMINATION DATE OF ADMISSION: 05/16/2020 CHIEF COMPLAINT: Fever, body aches. HISTORY OF PRESENT ILLNESS: A 64-year-old white male whose primary care doctor is Dr. Daniel in [place]. He was at [facility] this morning and had sudden onset of fever, body aches, joint pain. He had a little dry cough, a little abdominal pain. No rash. No shortness of breath. He had a little nausea, vomiting a couple of times and that is it. He has had no dysuria or urinary frequency. He has not seen any tick bites or any insect bites at all. He has not noticed a rash. In the ER, his temperature was 103.6, heart rate is 105. His white count was 16,200. He is admitted for sepsis. COVID was done and the result has now returned negative. PAST MEDICAL AND SURGICAL HISTORY: He has type 2 diabetes with peripheral neuropathy. He has sleep apnea, obesity, hypertension, hyperlipidemia, osteoarthritis, gout. He has chronic lumbar degenerative disc. PAST SURGICAL HISTORY: He has had L3-L4 discectomy. He had vein stripping. He has had a right knee arthroscopy. He had I&D of left foot back in 2017 here. ALLERGIES: No known drug allergies. HOME MEDICATIONS: Lisinopril/hydrochlorothiazide 20/25 once a day, pravastatin 40 mg once a day, amlodipine 5 mg once a day, gabapentin 100 mg 3 times a day, he takes [place] 10 p.r.n. bad back pain, metformin 500 mg twice a day, allopurinol 300 mg once a day, colchicine 0.6 p.r.n. acute gout. SOCIAL HISTORY: He is . He is disabled due to his back. FAMILY HISTORY: Mother of lung cancer. Father of Alzheimer dementia. Brother has a history of heart disease. HABITS: No tobacco, alcohol or drugs. REVIEW OF SYSTEMS: GENERAL: No major weight changes. HEENT: No particular sinus or allergy problems. RESPIRATORY: No history of emphysema, pneumonia or asthma. CARDIAC: No history of heart trouble. GASTROINTESTINAL: No significant diarrhea, constipation, or heartburn. GENITOURINARY: No history of significant UTI. No BPH. MUSCULOSKELETAL: He has osteoarthritis and chronic lumbar disc pain. NEUROLOGIC: No migraines. He does have obstructive sleep apnea. PSYCHIATRIC: Denies depression or melancholia. PHYSICAL EXAMINATION: VITAL SIGNS: T-max in the ER was 103.6, last temperature taken was 99.3. Pulse 98, respirations 16, blood pressure noted to be 136/116. GENERAL: He is an obese white male, does not appear in acute distress. HISTORY AND PHYSICAL [id number] PHILIPPE LEON SKIN: Warm and dry. He is very pleasant. HEENT: Grossly within normal limits. NECK: Supple. No JVD or bruit. HEART: Regular rate and rhythm without murmur. LUNGS: Clear. ABDOMEN: Soft, nontender, obese. EXTREMITIES: He has compression stockings on up to his knees. No significant edema noted currently. NEUROLOGICAL: He is awake and alert. No focal motor or sensory deficits. SKIN: No obvious rash or bites. LABORATORY DATA AND DIAGNOSTIC STUDIES: CBC: White count 16,200, hemoglobin 17.2, hematocrit 50.3, platelets number 205,000, 91% polys. Basic metabolic panel: Sodium 140, potassium 3.3, chloride 100, CO2 25.9, BUN 11, creatinine 1.4, glucose 146, calcium 9.3. Liver functions are all normal. Lactic acid level is high at 6.2, troponin less than 0.017. Urinalysis is normal. Chest x-ray shows nothing acute. CT abdomen and pelvis shows nothing acute. COVID-19 with was pending earlier, but has come back negative. ASSESSMENT: Sepsis with fever, tachycardia, respiratory rate 20, elevated white blood cell count and elevated lactic acid. PLAN: He is started on vancomycin and Zosyn. Blood cultures have been obtained. We will hold metformin. He has his high lactic acid, Tylenol if needed for fever. Continue his usual home medications. Other tests or procedures as warranted. TRANSINT:[id number] Voice Confirmation ID: [id number] DOCUMENT ID: [id number] ZEB YUN MD at 0826 CC: [id number] DICTATION DATE: 05/16/202146 DETECTIVE PRIVATE EYE: 05/17/20 0028 ADM IN [facility] [address] [place] [address]
--- NOTE | 2020-05-17 09:26 | NUR ---
PT AWAKE AND OREINTED WHEN I ENTERED ROOM. REQUESTS FOR EXTRA FOOD, REFUSING INSULIN. CL INR EACH, SRX2.
[2020-05-17 11:00] VITALS: BP 118/52
[2020-05-17 11:43] LABS: ANISOCYTOSIS OCC; LYMPHOCYTES 11 % (15-50); MONOCYTES 18 % (2-11); NEUTROPHILS 66 % (40-80); PLATELET ESTIMATE NORMAL
--- NOTE | 2020-05-17 12:49 | NUR ---
PT C/O FEVER, ADMINISTERED TYLENOL. PT IS FLUSHED AND DIAPHORETIC. STATES HE WAS UNABLE TO EAT HIS LUNCH D/T NAUSEA AND SHAKES. BLOOD SUGAR 150. CL IN REACH, SRX2, AT BEDSIDE.
[2020-05-17 14:15] VITALS: Ht 198.1 cm; Wt 124.7 kg
[2020-05-17 15:00] VITALS: BP 101/47
--- NOTE | 2020-05-17 16:42 | NUR ---
PT ALERT AND ORIETNED. REMOVED CLTHING, INCLUDING ZEENAT HOSE FOR A SHOWER. PTS LOWER RIGHT LEG IS BRIGHT RED AND HOT TO THE TOUCH. STATES THE RIGHT LEG IS ALWAYS MORE SWOLLEN THAN THE LEFT, BUT THAT SHE'S UNSURE IF IT IS WORSE THAN IT WAS PREVIUOSLY. WILL CNT. TO MONITOR. CL IN REACH, SRX2.
--- NOTE | 2020-05-17 18:00 | NUR ---
I have reviewed this patient and I concur with the Shift Assessment completed by the Licensed Practical Nurse today this shift.
[2020-05-17 20:00] VITALS: BP 116/51
[2020-05-18] VITALS: BP 112/57
--- NOTE | 2020-05-18 01:31 | NUR ---
NEW PIV RESITED TO LEFT WRIST X2 ATTEMPTS. SMALL SORE NOTED ON THE BOTTOM OF PTS RIGHT FOOT. PT REFUSING BIPAP AT THIS TIME. STATES HE CANNOT SLEEP WITH IT ON. NO FURHTER NEEDS EXPRESSED. WILL CTM.
[2020-05-18 04:00] VITALS: BP 115/56
[2020-05-18 05:52] LABS: BASOPHILS 0.1 % (0-2); EOSINOPHILS 0.4 % (0-7); HEMATOCRIT 41.8 % (42.0-54.0); HEMOGLOBIN 13.8 g/dL (13.5-17.5); IMMATURE GRANULOCYTES 0.4 % (0-5); LYMPHOCYTES 8.4 % (15-50); MCH 30.1 pg (26.0-34.0); MCV 91.1 fL (80.0-100.0); MEAN PLATELET VOLUME 10.4 fL (7.4-10.4); MONOCYTES 4.7 % (2-11); PLATELET COUNT 181 10x3/uL (130-400); RBC 4.59 10x6/uL (4.20-6.10); RDW 13.8 % (11.5-14.5)
[2020-05-18 05:59] LABS: WBC 15.5 10x3/uL (4.8-10.8)
[2020-05-18 06:05] LABS: ANION GAP 9.9 mmol/L (8-16); CARBON DIOXIDE 29.3 mmol/L (21.0-32.0); CREATININE - SERUM 1.3 mg/dL (0.6-1.3)
[2020-05-18 06:14] LABS: POTASSIUM - SERUM 3.2 mmol/L (3.5-5.1)
[2020-05-18 09:36] VITALS: BP 119/54
[2020-05-18 12:00] VITALS: BP 110/60
[2020-05-18 16:00] VITALS: BP 109/61
--- NOTE | 2020-05-18 21:56 | NUR ---
RECEIVED TO FLOOR, ACCOMPANIED BY STAFF. A&O X 4, 3L O2 IN USE. REQUESTS A BATH PERFORMED TOMORROW AFTER BREAKFAST. DENIES NEEDS, UP AD MARY TO BATHROOM, CTM.
[2020-05-19 04:00] VITALS: BP 107/51
[2020-05-19 05:19] LABS: BASOPHILS 0.4 % (0-2); HEMATOCRIT 41.1 % (42.0-54.0); HEMOGLOBIN 13.6 g/dL (13.5-17.5); IMMATURE GRANULOCYTES 0.3 % (0-5); LYMPHOCYTES 17.6 % (15-50); MCH 30.2 pg (26.0-34.0); MCHC 33.1 g/dL (31.0-37.0); MCV 91.1 fL (80.0-100.0); MEAN PLATELET VOLUME 10.4 fL (7.4-10.4); MONOCYTES 10.2 % (2-11); NEUTROPHILS 67.5 % (40-80); PLATELET COUNT 180 10x3/uL (130-400); RBC 4.51 10x6/uL (4.20-6.10); RDW 13.6 % (11.5-14.5)
--- NOTE | 2020-05-19 05:36 | NUR ---
I have reviewed this patient and I concur with the Shift Assessment completed by the Licensed Practical Nurse today this shift.
[2020-05-19 05:45] LABS: ANION GAP 8.4 mmol/L (8-16); CALCIUM 8.5 mg/dL (8.5-10.1); CARBON DIOXIDE 30.7 mmol/L (21.0-32.0); CREATININE - SERUM 1.2 mg/dL (0.6-1.3); POTASSIUM - SERUM 3.1 mmol/L (3.5-5.1)
[2020-05-19 09:01] VITALS: BP 116/63
[2020-05-19 13:36] VITALS: BP 112/63
[2020-05-19 18:41] VITALS: BP 120/62
--- NOTE | 2020-05-19 21:10 | NUR ---
LYING IN BED TALKING TO SPOUSE. ALERT AND ORIENTED X4. RESP IIREG. O2 @ 3L/NC. NONPROD COUGH NOTED. NS @ 125 MLHR INFUSING IN LT WRIST. DENIES PAIN . AMBULATORY. NO DISTRESS. SR ELEVATED X2. CL IN REACH.
[2020-05-19 22:20] VITALS: BP 98/44
--- NOTE | 2020-05-20 02:08 | NUR ---
RESTING WITH EYES CLOSED. RESP NONLABORED. NO DISTRESS. SPOUSE AT BEDSIDE. CL IN REACH.
[2020-05-20 05:43] LABS: BASOPHILS 0.7 % (0-2); HEMATOCRIT 42.3 % (42.0-54.0); HEMOGLOBIN 14.2 g/dL (13.5-17.5); IMMATURE GRANULOCYTES 0.8 % (0-5); LYMPHOCYTES 19.6 % (15-50); MCH 30.9 pg (26.0-34.0); MCHC 33.6 g/dL (31.0-37.0); MCV 92.2 fL (80.0-100.0); MEAN PLATELET VOLUME 10.7 fL (7.4-10.4); MONOCYTES 8.4 % (2-11); NEUTROPHILS 66.5 % (40-80); PLATELET COUNT 189 10x3/uL (130-400); RBC 4.59 10x6/uL (4.20-6.10); RDW 13.8 % (11.5-14.5); WBC 8.9 10x3/uL (4.8-10.8)
[2020-05-20 06:27] LABS: ANION GAP 13.3 mmol/L (8-16); CALCIUM 8.8 mg/dL (8.5-10.1); CREATININE - SERUM 1.1 mg/dL (0.6-1.3); POTASSIUM - SERUM 3.3 mmol/L (3.5-5.1)
[2020-05-20 08:00] VITALS: BP 125/67
[2020-05-20 12:00] VITALS: BP 110/64
--- NOTE | 2020-05-20 15:01 | NUR ---
NUTRITION F/U CHART REVIEWED. PT TOLERATING ADA DIET WITH GOOD INTAKE RECENT MEALS. WILL CONTINUE TO PROVIDE DIET, MONITOR PO INTAKE AND PT PROGRESS. RD FOLLOWING
[2020-05-20 15:32] VITALS: BP 115/50
[2020-05-20 20:00] VITALS: BP 144/63
[2020-05-21 04:00] VITALS: BP 148/68
[2020-05-21 05:37] LABS: BASOPHILS 0.3 % (0-2); EOSINOPHILS 2.8 % (0-7); HEMATOCRIT 44.6 % (42.0-54.0); HEMOGLOBIN 14.6 g/dL (13.5-17.5); IMMATURE GRANULOCYTES 1.2 % (0-5); LYMPHOCYTES 21.3 % (15-50); MCHC 32.7 g/dL (31.0-37.0); MCV 91.8 fL (80.0-100.0); MEAN PLATELET VOLUME 10.3 fL (7.4-10.4); MONOCYTES 8.7 % (2-11); NEUTROPHILS 65.7 % (40-80); PLATELET COUNT 217 10x3/uL (130-400); RBC 4.86 10x6/uL (4.20-6.10); RDW 13.5 % (11.5-14.5)
[2020-05-21 05:49] LABS: ANION GAP 11.2 mmol/L (8-16); CARBON DIOXIDE 29.8 mmol/L (21.0-32.0); CREATININE - SERUM 1.2 mg/dL (0.6-1.3)
[2020-05-21 09:26] VITALS: BP 133/66
[2020-05-21 12:56] VITALS: BP 140/69
--- NOTE | 2020-05-21 15:23 | MORECARE ---
CASE MANAGEMENT DISCHARGE SUMMARY PATIENT: PHILIPPE LEON W UNIT: [id number] ADM DATE: 05/16/20 AGE: 64 : 54 SEX: M ROOM/BED: D.2234 AUTHOR: SOTERO SEYMOUR PHYSICIAN: REFERRING PHYSICIAN: ZEB YUN MD DATE OF SERVICE: 05/21/20 Discharge Plan Patient Name: PHILIPPE LEON [facility] : 1955 Planned Disposition: Home Anticipated Discharge Date: Discharge Date: Expected LOS: Initial Reviewer: [email or web address] Initial Review Date: 05/21/2020 Generated: 05/21/20 4:22 pm Patient Name: PHILIPPE LEON Page [id number] at 1523 All edits/amendments must be made on the electronic document DICTATION DATE: 05/21/20 152 CLERK MANAGER: MILLICENT 05/21/20 1522 RPT#: [id number] DC DATE: STATUS: ADM IN [facility] [address] [place] [address] END OF REPORT
--- NOTE | 2020-05-21 15:30 | MORECARE ---
CASE MANAGEMENT DISCHARGE SUMMARY PATIENT: PHILIPPE LEON UNIT: [id number] ADM DATE: 05/16/20 AGE: 64 : 54 SEX: M ROOM/BED: D.2234 AUTHOR: SOTERO SEYMOUR PHYSICIAN: REFERRING PHYSICIAN: ZEB YUN MD DATE OF SERVICE: 05/21/20 Discharge Plan Patient Name: PHILIPPE LEON Facility: [facility]:[place] : 1955 Planned Disposition: Home Anticipated Discharge Date: Discharge Date: Expected LOS: Initial Reviewer: [email or web address] Initial Review Date: 05/21/2020 Generated: 05/21/20 4:30 pm Comments DCP- Discharge Planning Updated by [email or web address]: Chikis Jennings on 05/21/20 2:[address] Patient Name: PHILIPPE LEON Admission Status: ER Accout number: [id number] Admission Date: 05-16-2020 : 1955 Admission Diagnosis:FEVER, UNSPECIFIED Attending: ZEB YUN Current LOS: 5 Anticipated DC Date: Planned Disposition: Home Primary Insurance: [employer] ADV Discharge Planning Comments: CM met with patient to complete initial dc planning assessment. CM educated patient on the CM role and verbal consent given by patient to complete assessment. Patient lives at home with family. Patient is independent. At discharge patient plans to return home and feels this is a safe discharge. CM discussed availability of home health, rehab services, and medical equipment. Patient will have family to transport home. Patient denied known discharge needs at this time. Anticipates dc to home once cultures are back. CM will continue to follow and will assist as Erp Business Analyst: Chikis Jennings DCPIA - Discharge Planning Initial Assessment Updated by [email or web address]: Chikis Jennings on 05/21/20 3:23 pm * Is the patient Alert and Oriented? Yes * PCP MARÍA * [facility] * Preadmission Environment Home with Family * ADLs Independent * Other Equipment CPAP * Community resources currently utilized None * Additional services required to return to the preadmission environment? No * Can the patient safely return to the preadmission environment? Yes * Has this patient been hospitalized within the prior 30 days at any hospital? No Last DP export: 05/21/20 2:22 p Patient Name: PHILIPPE LEON Page [phone] at 1530 All edits/amendments must be made on the electronic document DICTATION DATE: 05/21/201529 MACHINE BINDING FOLDER: MILLICENT 05/21/201529 RPT#: [id number] DC DATE: STATUS: ADM IN [facility] [address] [place] [address] END OF REPORT
[2020-05-21 17:22] VITALS: BP 125/69
[2020-05-21 18:08] LABS: AEROBE ID Final report (())
[2020-05-21 21:48] VITALS: BP 140/78
[2020-05-22 05:45] LABS: BASOPHILS 0.6 % (0-2); EOSINOPHILS 3.4 % (0-7); HEMATOCRIT 43.3 % (42.0-54.0); HEMOGLOBIN 14.5 g/dL (13.5-17.5); IMMATURE GRANULOCYTES 1.6 % (0-5); LYMPHOCYTES 26.2 % (15-50); MCH 30.7 pg (26.0-34.0); MCHC 33.5 g/dL (31.0-37.0); MCV 91.7 fL (80.0-100.0); MONOCYTES 7.3 % (2-11); NEUTROPHILS 60.9 % (40-80); PLATELET COUNT 218 10x3/uL (130-400); RBC 4.72 10x6/uL (4.20-6.10); RDW 13.5 % (11.5-14.5); WBC 8.5 10x3/uL (4.8-10.8)
[2020-05-22 06:11] LABS: ANION GAP 9.6 mmol/L (8-16); CALCIUM 8.8 mg/dL (8.5-10.1); CARBON DIOXIDE 30.6 mmol/L (21.0-32.0); CREATININE - SERUM 1.1 mg/dL (0.6-1.3); POTASSIUM - SERUM 3.2 mmol/L (3.5-5.1)
--- NOTE | 2020-05-22 10:09 | NUR ---
PT ALERT AND ORIENTED X4 UPON ENTERING. ADMINISTERED MEDICATION, NO DIFFICULTIES. ASSESSMENT PERFORMED AT THIS TIME. DENIES ANY NEEDS AT THIS TIME. BED IN LOWEST POSITION, BED RAILS X2, CALL LIGHT WITHIN REACH. WILL CONTINUE TO MONITOR.
[2020-05-22 10:10] VITALS: BP 146/69
--- NOTE | 2020-05-22 10:46 | NUR ---
ADMINISTERED PRN NORCO FOR PAIN IN RIGHT LOWER LEG, CELLULITIS. DENIES ANY NEEDS. WILL CONTINUE TO MONITOR.
--- NOTE | 2020-05-22 11:26 | NUR ---
GAVE 2 UNITS INSULIN FOR SUGAR OF 166. RESTING COMFORTABLY. DENIES ANY NEEDS. WILL CONTINUE TO MONITOR.
[2020-05-22] MEDS ORDERED: AMOXICILLIN875 MG PO (11:39)
--- NOTE | 2020-05-22 12:41 | MORECARE ---
CASE MANAGEMENT DISCHARGE SUMMARY PATIENT: PHILIPPE LEON UNIT: [id number] ADM DATE: 05/16/20 AGE: 64 : 54 SEX: M ROOM/BED: D.2234 AUTHOR: SOTERO SEYMOUR PHYSICIAN: REFERRING PHYSICIAN: ZEB YUN MD DATE OF SERVICE: 05/22/20 Discharge Plan Patient Name: PHILIPPE LEON Facility: [facility]:[place] : 1955 Planned Disposition: Home Anticipated Discharge Date: Discharge Date: Expected LOS: Initial Reviewer: [email or web address] Initial Review Date: 05/21/2020 Generated: 05/22/20 1:41 pm Comments DCP- Discharge Planning Updated by [email or web address]: Tabitha Meadows on 05/22/20 11:[address] Patient Name: PHILIPPE LEON Encounter No: [id number] : 1955 Primary Insurance: [employer]ARE ADV Anticipated DC Date: Planned Disposition: Home External Planned Provider: : DCP follow-up note: CM met with patient for final dc plans. Patient states he will dc home with his and denies any needs. Declination signed for home health. Patient and family in agreement with discharge plan. No changes to plan. DC IMM delivered, explained, signed by the patient, and placed in chart. Signed form also left with the patient. Case management will follow and assist as needed. Tabitha Meadows MSN,RN,CM DCP- Discharge Planning Updated by [id number]: Chikis Jennings on 05/21/20 2:[address] Patient Name: PHILIPPE LEON Admission Status: ER Accout number: [id number] Admission Date: 05-16-2020 : 1955 Admission Diagnosis:FEVER, UNSPECIFIED Attending: ZEB YUN Current LOS: 5 Anticipated DC Date: Planned Disposition: Home Primary Insurance: [employer] MED[employer] ADV Discharge Planning Comments: CM met with patient to complete initial dc planning assessment. CM educated patient on the CM role and verbal consent given by patient to complete assessment. Patient lives at home with family. Patient is independent. At discharge patient plans to return home and feels this is a safe discharge. CM discussed availability of home health, rehab services, and medical equipment. Patient will have family to transport home. Patient denied known discharge needs at this time. Anticipates dc to home once cultures are back. CM will continue to follow and will assist as Brake Machine Operator: Chikisrakesh Jennings DCPIA - Discharge Planning Initial Assessment Updated by [email or web address]: Chikis Jennings on 05/21/20 3:23 pm * Is the patient Alert and Oriented? Yes * PCP MARÍA * [facility] * Preadmission Environment Home with Family * ADLs Independent * Other Equipment CPAP * Community resources currently utilized None * Additional services required to return to the preadmission environment? No * Can the patient safely return to the preadmission environment? Yes * Has this patient been hospitalized within the prior 30 days at any hospital? No Coverage Notice Reviewer: [email or web address] Meadows Notice Issued Date-Time: 05/22/2020 12:30 Notice Type: IM Discharge Notice Notice Delivered To: Patient Relationship to Patient: Title Closer Name: Delivery Method: HAND - Hand Delivered Elodia Days: Prior Verbal Notification: Recipient Understood Notice: Yes Recipient Signature: Yes Med Rec Note Co-signed by Attending: Coverage Notice Comment: DC IMM delivered, explained, signed by the patient, and placed in chart. Signed form also left with the patient. Reviewer: [id number] Ankit Meadows Notice Issued Date-Time: 05/22/2020 12:30 Notice Type: Patient Choice Letter Notice Delivered To: Patient Relationship to Patient: Title Closer Name: Delivery Method: - Elodia Days: Prior Verbal Notification: Recipient Understood Notice: Yes Recipient Signature: Yes Med Rec Note Co-signed by Attending: Coverage Notice Comment: declination for hh Last DP export: 05/21/20 2:30 p Patient Name: PHILIPPE LEON Page [phone] at 1241 All edits/amendments must be made on the electronic document DICTATION DATE: 05/22/20 1241 FACING MACHINE OPERATOR: MILLICENT 05/22/20 1241 RPT#: [id number] DC DATE: STATUS: ADM IN [facility] [address] [place] [address] END OF REPORT
--- NOTE | 2020-05-22 13:23 | NUR ---
REMOVED RIGHT WRIST/FOREARM IV, CATHETER TIP INTACT, COVERED WITH GAUZE AND TAPE. TOLERATED WELL. PT SIGNED ALL NECESSARY PAPERWORK. ASSISTED PT WITH PUTTING ZEENAT HOSE ON. DENIES ANY OTHER NEEDS OR HELP.
[2020-05-22 13:25] VITALS: BP 135/69
--- NOTE | 2020-05-22 13:56 | NUR ---
I have reviewed this patient and I concur with the Shift Assessment completed by the Licensed Practical Nurse today this shift.
--- NOTE | 2020-05-24 08:36 | MORECARE ---
CASE MANAGEMENT DISCHARGE SUMMARY PATIENT: PHILIPPE LEON UNIT: [id number] ADM DATE: 05/16/20 AGE: 64 : 54 SEX: M ROOM/BED: D.2234 AUTHOR: SOTERO SEYMOUR PHYSICIAN: REFERRING PHYSICIAN: ZEB YUN MD DATE OF SERVICE: 05/24/20 Discharge Plan Patient Name: PHILIPPE LEON Facility: [facility]:[place] : 1955 Planned Disposition: Home Anticipated Discharge Date: Discharge Date: 05/22/2020 Expected LOS: Initial Reviewer: [email or web address] Initial Review Date: 05/21/2020 Generated: 05/24/20 9:36 am Comments DCP- Discharge Planning Updated by [email or web address]: Tabitha Meadows on 05/22/20 11:[address] Patient Name: PHILIPPE LEON Encounter No: [id number] : 1955 Primary Insurance: [employer] MEDICARE ADV Anticipated DC Date: Planned Disposition: Home External Planned Provider: : DCP follow-up note: CM met with patient for final dc plans. Patient states he will dc home with his and denies any needs. Declination signed for home health. Patient and family in agreement with discharge plan. No changes to plan. DC IMM delivered, explained, signed by the patient, and placed in chart. Signed form also left with the patient. Case management will follow and assist as needed. Tabitha Meadows MSN,RN,CM DCP- Discharge Planning Updated by [id number]: Chikis Jennings on 05/21/20 2:[address] Patient Name: PHILIPPE LEON Admission Status: ER Accout number: [id number] Admission Date: 05-16-2020 : 1955 Admission Diagnosis:FEVER, UNSPECIFIED Attending: ZEB YUN Current LOS: 5 Anticipated DC Date: Planned Disposition: Home Primary Insurance: [employer] MEDICARE ADV Discharge Planning Comments: CM met with patient to complete initial dc planning assessment. CM educated patient on the CM role and verbal consent given by patient to complete assessment. Patient lives at home with family. Patient is independent. At discharge patient plans to return home and feels this is a safe discharge. CM discussed availability of home health, rehab services, and medical equipment. Patient will have family to transport home. Patient denied known discharge needs at this time. Anticipates dc to home once cultures are back. CM will continue to follow and will assist as Library Aide: Chikis Jennings DCPIA - Discharge Planning Initial Assessment Updated by [id number]: Chikis Jennings on 05/21/20 3:23 pm * Is the patient Alert and Oriented? Yes * PCP MARÍA * [facility] * Preadmission Environment Home with Family * ADLs Independent * Other Equipment CPAP * Community resources currently utilized None * Additional services required to return to the preadmission environment? No * Can the patient safely return to the preadmission environment? Yes * Has this patient been hospitalized within the prior 30 days at any hospital? No Coverage Notice Reviewer: [id number] Ankit Meadows Notice Issued Date-Time: 05/22/2020 12:30 Notice Type: IM Discharge Notice Notice Delivered To: Patient Relationship to Patient: Dynamics Ax Solution Architect Name: Delivery Method: HAND - Hand Delivered Elodia Days: Prior Verbal Notification: Recipient Understood Notice: Yes Recipient Signature: Yes Med Rec Note Co-signed by Attending: Coverage Notice Comment: DC IMM delivered, explained, signed by the patient, and placed in chart. Signed form also left with the patient. Reviewer: [id number] Ankit Meadows Notice Issued Date-Time: 05/22/2020 12:30 Notice Type: Patient Choice Letter Notice Delivered To: Patient Relationship to Patient: Dynamics Ax Solution Architect Name: Delivery Method: - Elodia Days: Prior Verbal Notification: Recipient Understood Notice: Yes Recipient Signature: Yes Med Rec Note Co-signed by Attending: Coverage Notice Comment: declination for hh Last DP export: 05/22/20 11:41 a Patient Name: PHILIPPE LEON Page [phone] at 0836 All edits/amendments must be made on the electronic document DICTATION DATE: 05/24/20835 ARTIST SUSPECT: MILLICENT 05/24/20835 RPT#: [id number] DC DATE:05/22/20 STATUS: DIS IN [facility] [address] [place] [address] END OF REPORT
== END 2020-05-22 14:17 | disposition home or self-care (01) | DRG 872 ==
LOC: D.ER 12:38 → D.M2 16:49 → D.MS 05-18 21:42
PROVIDERS: Family Medicine; ADMIT Family Medicine; ATTEND Family Medicine
DX: A40.8 Other streptococcal sepsis (principal); E11.42 Type 2 diabetes mellitus with diabetic polyneuropathy; E66.9 Obesity, unspecified; I10 Essential (primary) hypertension; E78.5 Hyperlipidemia, unspecified; M51.36 Other intervertebral disc degeneration, lumbar region; Z68.31 Body mass index [BMI] 31.0-31.9, adult; E11.65 Type 2 diabetes mellitus with hyperglycemia

== ENCOUNTER 2021-01-14 03:46 | Inpatient (IN) | payer MEDICARE ==
[~2021-01-14] VITALS: Ht 198.1 cm; Wt 169.2 kg
[2021-01-14] VITALS (7 sets, daily range): BP systolic 95–115; BP diastolic 43–64
[~2021-01-14 03:46] MED LIST changes: +AMOXICILLIN875 MG PO
[2021-01-14 04:49] LABS: APTT 26.8 SECONDS (22.8-39.4); INR 1.24 (0.85-1.17); PROTIME 14.5 SECONDS (11.6-15.0)
[2021-01-14 04:52] LABS: ALBUMIN 3.3 g/dL (3.4-5.0); ALKALINE PHOSPHATASE 87 U/L (30-120); ALT (SGPT) 24 U/L (10-68); BILIRUBIN - TOTAL 1.01 mg/dL (0.2-1.3); CALCIUM 9.4 mg/dL (8.5-10.1); CARBON DIOXIDE 24.5 mmol/L (21.0-32.0); CREATININE - SERUM 1.7 mg/dL (0.6-1.3); PROTEIN - SERUM 7.2 g/dL (6.4-8.2); THYROID STIMULATING HORMONE 1.16 uIU/mL (0.36-3.74); UREA NITROGEN 8 mg/dL (7-18); WBC 21.8 10x3/uL (4.8-10.8); eGFR NON AFRICAN AMERICAN 43 mL/min (90-120)
[2021-01-14 04:53] LABS: HEMATOCRIT 56.5 % (42.0-54.0); HEMOGLOBIN 19.5 g/dL (13.5-17.5); LYMPHOCYTE ABS# 0.69 10x3/uL (1.32-3.57); MCH 29.9 pg (26.0-34.0); MCHC 34.5 g/dL (31.0-37.0); MCV 86.7 fL (80.0-100.0); MEAN PLATELET VOLUME 10.3 fL (7.4-10.4); NEUTROPHIL ABS# 20.05 10x3/uL (1.78-5.38); PLATELET COUNT 153 10x3/uL (130-400); RBC 6.52 10x6/uL (4.20-6.10)
[2021-01-14 05:06] LABS: CALC OSMOLALITY 262 mosm/kg (275-300); CHLORIDE - SERUM 90 mmol/L (98-107); CREATINE KINASE 268 UL (21-232); GLUCOSE 207 mg/dL (74-106); SODIUM 129 mmol/L (136-145); TROPONIN-I < 0.017 ng/mL (0.000-0.060)
[2021-01-14 05:07] LABS: POTASSIUM - SERUM 2.7 mmol/L (3.5-5.1)
[2021-01-14 05:34] LABS: LYMPHOCYTES 9 % (15-50); MONOCYTES 1 % (2-11); NEUTROPHILS 58 % (40-80)
[2021-01-14 05:35] LABS: PLATELET ESTIMATE DECREASED
--- NOTE | 2021-01-14 06:02 | NUR ---
PT IS IN BED AT THIS TIME WITH FAMILY AT BEDSIDE. PT HAS EYES CLOSED WITH RESPIRATIONS EVEN AND UNLABORED.
[2021-01-14 06:13] LABS: INFLUENZA TYPE A NEGATIVE (NEGATIVE); INFLUENZA TYPE B NEGATIVE (NEGATIVE); SARS-CoV-2 ANTIGEN NEGATIVE- SARS-COV-2 (NEGATIVE)
--- NOTE | 2021-01-14 07:40 | NUR ---
PATIENT REPORTS UP AT BEDSIDE TO VOID BUT IS UABLE. PATIENT IS SOB AND SPO2 AT 90-91% WITH EXERTION. O2 ON AT 2L/M.
--- NOTE | 2021-01-14 08:00 | NUR ---
IN AND OUT CATHETERIZATION PERFORMED TO OBTAIN URINE FOR UA AND UDS. 200MLS OF CONCENTRATED URINE RETURNED. SPECIMEN TO LAB.
[2021-01-14 08:32] LABS: UDS - AMPHET NEGATIVE QUAL (NEGATIVE); UDS - BARB NEGATIVE QUAL (NEGATIVE); UDS - BENZO NEGATIVE QUAL (NEGATIVE); UDS - COCAINE NEGATIVE QUAL (NEGATIVE); UDS - OPIATE POSITIVE QUAL (NEGATIVE); UDS - PCP NEGATIVE QUAL (NEGATIVE); UDS - THC NEGATIVE QUAL (NEGATIVE)
[2021-01-14 08:39] LABS: BILIRUBIN NEGATIVE (NEGATIVE); KETONE NEGATIVE (NEGATIVE); NITRITE NEGATIVE (NEGATIVE); UROBILINOGEN NORMAL mg/dL (< 2)
[2021-01-14 08:40] LABS: AMORPHOUS SEDIMENT MANY LPF (NONE SEEN); BACTERIA FEW HPF (NONE SEEN); WHITE CELLS - URINE 0-5 HPF (0-1)
[2021-01-14 08:41] LABS: SQUAMOUS EPITHELIAL 0-5 HPF (0-4)
--- NOTE | 2021-01-14 10:15 | NUR ---
PATIENT UP AT BEDSIDE TO URINATE. MISSED URINAL, URINE ON FLOOR AND CLOTHING. ASSISTED INTO A GOWN AND BACK TO BED. PATIENT IS WEARING KNEE HIGH COMPRESSION STOCKINGS. SLIPPER SOCKS ON. PATIENT COMPLETED ORAL CONTRAST.
--- NOTE | 2021-01-14 11:10 | NUR ---
REPORT TO JUANA VILLALOBOS ON MED II. PATIENT TO CT WITH STAFF FOR ABDOMINAL CT. REQUESTED FOR PATIENT TO BE TAKEN TO MED II RM [address]
[2021-01-14 14:59] LABS: BILIRUBIN NEGATIVE (NEGATIVE); KETONE NEGATIVE (NEGATIVE); NITRITE NEGATIVE (NEGATIVE); UROBILINOGEN NORMAL mg/dL (< 2)
[2021-01-14 15:00] LABS: AMORPHOUS SEDIMENT MANY LPF (NONE SEEN); SQUAMOUS EPITHELIAL 0-5 HPF (0-4); WHITE CELLS - URINE 0-5 HPF (0-1)
[2021-01-14] MEDS ORDERED: GLUCOPHAGE500 MG PO (15:06)
--- NOTE | 2021-01-14 15:09 | NUR ---
TO CALL AND I REVIEWED THE HOME MEDICATION LIST WITH HER. SHE ALSO STATES THAT HE LIKE TO HAVE HIS BLOOD SUGAR TAKEN FROM HIS EARLOBE AND NOT HIS FINGER.
[2021-01-14 16:17] LABS: CREATININE - URINE 230.7 mg/dL (30-125); PRO/CRE RATIO URINE 0.2 mg/g; PROTEIN - URINE 50.5 mg/dL (0.0-11.9)
--- NOTE | 2021-01-14 18:33 | NUR ---
CONTACTED MARINA RODRIGUEZ APN REGARDING POSITIVE BLOOD CULTURES FOR GRAM POSITIVE CHAINS. VOICES SHE WILL LOOK AT HIS RECORDS AND ORDER APPROPRIATE MEDICATIONS.
[2021-01-15 01:47] VITALS: BP 95/60
--- NOTE | 2021-01-15 02:51 | NUR ---
I have reviewed this patient and I concur with the Shift Assessment completed by the Licensed Practical Nurse today this shift.
[2021-01-15 05:50] VITALS: BP 154/85
[2021-01-15 06:30] LABS: BASOPHILS 0.2 % (0-2); EOSINOPHILS 0 % (0-7); HEMATOCRIT 49.9 % (42.0-54.0); HEMOGLOBIN 16.8 g/dL (13.5-17.5); IMMATURE GRANULOCYTES 0.9 % (0-5); LYMPHOCYTE ABS# 0.51 10x3/uL (1.32-3.57); LYMPHOCYTES 1.8 % (15-50); MCH 29.4 pg (26.0-34.0); MCHC 33.7 g/dL (31.0-37.0); MCV 87.4 fL (80.0-100.0); MEAN PLATELET VOLUME 11.1 fL (7.4-10.4); NEUTROPHIL ABS# 26.07 10x3/uL (1.78-5.38); NEUTROPHILS 93.1 % (40-80); PLATELET COUNT 180 10x3/uL (130-400); RBC 5.71 10x6/uL (4.20-6.10); RDW 14.5 % (11.5-14.5)
--- NOTE | 2021-01-15 06:35 | NUR ---
I have reviewed this patient and I concur with the Shift Assessment completed by the Licensed Practical Nurse today this shift.
[2021-01-15 06:38] LABS: ALBUMIN 2.6 g/dL (3.4-5.0); ALKALINE PHOSPHATASE 80 U/L (30-120); ALT (SGPT) 18 U/L (10-68); BILIRUBIN - TOTAL 0.66 mg/dL (0.2-1.3); CALCIUM 8.6 mg/dL (8.5-10.1); CARBON DIOXIDE 28.7 mmol/L (21.0-32.0); CHLORIDE - SERUM 92 mmol/L (98-107); CKMB 1.6 U/L (0.0-3.6); CREATINE KINASE 128 UL (21-232); CREATININE - SERUM 1.4 mg/dL (0.6-1.3); PROTEIN - SERUM 6.3 g/dL (6.4-8.2); SODIUM 129 mmol/L (136-145); TROPONIN-I < 0.017 ng/mL (0.000-0.060); eGFR NON AFRICAN AMERICAN 54 mL/min (90-120)
[2021-01-15 06:40] LABS: CALC OSMOLALITY 260 mosm/kg (275-300); GLUCOSE 143 mg/dL (74-106); MAGNESIUM - SERUM 1.8 mg/dL (1.8-2.4); UREA NITROGEN 13 mg/dL (7-18)
[2021-01-15 08:00] VITALS: BP 104/57
--- NOTE | 2021-01-15 09:00 | NUR ---
ERRYTHEMA AND GENERAIZED EDEMA NOTED TO RLE WITH PEDAL PULSES NOTED. WOUND NOTED TO PLANTER ASPECT OF RIGHT FOOT. BETADINE DRESSING APPPLIED. ULTRAM GIVEN FOR PAIN 04/16 AND EFFECTIVE 12/15. IVF INFUSING AT PRESCRIBED RATE. ENCOURAGED TO USE CALL LIGHT FOR ASSSIT.
[2021-01-15 11:00] VITALS: BP 92/52
--- NOTE | 2021-01-15 16:38 | NUR ---
BLADDER SCAN OBTAINED POST VOID WITH NO URINE RESIDUAL NOTED.
[2021-01-15 20:30] VITALS: BP 103/54
[2021-01-16] VITALS (7 sets, daily range): BP systolic 88–115; BP diastolic 54–72
[2021-01-16 05:37] LABS: BASOPHILS 0.2 % (0-2); EOSINOPHILS 0.7 % (0-7); HEMOGLOBIN 17.2 g/dL (13.5-17.5); IMMATURE GRANULOCYTES 0.4 % (0-5); LYMPHOCYTE ABS# 0.79 10x3/uL (1.32-3.57); LYMPHOCYTES 4.3 % (15-50); MCH 29.9 pg (26.0-34.0); MCHC 34.4 g/dL (31.0-37.0); MEAN PLATELET VOLUME 10.6 fL (7.4-10.4); MONOCYTES 4.2 % (2-11); NEUTROPHIL ABS# 16.57 10x3/uL (1.78-5.38); NEUTROPHILS 90.2 % (40-80); PLATELET COUNT 155 10x3/uL (130-400); RBC 5.75 10x6/uL (4.20-6.10); RDW 14.8 % (11.5-14.5); WBC 18.4 10x3/uL (4.8-10.8)
[2021-01-16 06:15] LABS: ALBUMIN 2.4 g/dL (3.4-5.0); ALKALINE PHOSPHATASE 95 U/L (30-120); ALT (SGPT) 16 U/L (10-68); BILIRUBIN - TOTAL 0.54 mg/dL (0.2-1.3); CALC OSMOLALITY 267 mosm/kg (275-300); CALCIUM 8.6 mg/dL (8.5-10.1); CARBON DIOXIDE 26.8 mmol/L (21.0-32.0); CHLORIDE - SERUM 97 mmol/L (98-107); CREATININE - SERUM 1.2 mg/dL (0.6-1.3); GLUCOSE 132 mg/dL (74-106); MAGNESIUM - SERUM 2.2 mg/dL (1.8-2.4); PROTEIN - SERUM 6.5 g/dL (6.4-8.2); SODIUM 133 mmol/L (136-145); TROPONIN-I < 0.017 ng/mL (0.000-0.060); UREA NITROGEN 12 mg/dL (7-18); eGFR NON AFRICAN AMERICAN 64 mL/min (90-120)
[2021-01-16 06:18] LABS: POTASSIUM - SERUM 3.5 mmol/L (3.5-5.1)
--- NOTE | 2021-01-16 09:39 | NUR ---
RESTING IN BED, NO DISTRESS NOTED, UP TO USE URINAL, DRESSING TO R FOOT, LOWER LEG WITH REDDNESS, CONT TO MONITOR PAIN
--- NOTE | 2021-01-16 09:56 | EC ---
PATIENT:PHILIPPE LEON DATE OF SERVICE: 01/14/21 SEX: M MEDICAL RECORD: [id number] DATE OF : [birth year] LOCATION:D.M2 D.210 AGE OF PATIENT: 65 ADMISSION DATE: 01/14/21 REFERRING PHYSICIAN: INTERPRETING PHYSICIAN: MARLENE FIERRO MD ECHOCARDIOGRAM REPORT ECHO CHARGES 4 ECHO COMPLETE Date: 01/14/21 CLINICAL DIAGNOSIS: CP ECHOCARDIOGRAPHIC MEASUREMENTS (adult normal given) AC root (d.<3.7cm) 3.5 cm LV Septum d (<1.2 cm> 1.2 cm Valve Excursion 2.1 cm LV Septum (systole) 1.5 cm Left Atria (s.<4.0cm> 3.9 cm LVPW d(<1.2cm) 1.5 cm RV (d.<2.3cm) 4.0 cm LVPW (sytole) 1.9 cm LV diastole(<5.6CM) 6.6 cm MV E-F(>70mm/sec) cm LV systole 4.9 cm LVOT Diameter 1.8 cm MV exc.(>10mm) 1.1 cm Est.ejection fraction (50-75%) % DOPPLER: LVIT cm/sec A 75 cm/sec E 90 cm/sec LA cm/sec RVSP 17 mmHg LVOT 128 cm/sec AOP1/2T m/s Asc. Ao 145 cm/sec RVOT 58 cm/sec RA cm/sec PA 71 cm/sec AV Gradient Peak 8.4 mmHg AV Mean 5.8 mmHg AV Area 2.2 cm MV Gradient Peak 2.8 mmHg MV Mean 2.2 mmHg MV Area cm COMMENTS: Reprographics Associate: Agustina GUTIERRES Pill Maker: 3 Dr. Zuniga TAPE# Pericardial Effusion N DATE OF SERVICE: Adequate 2D, color flow imaging, spectral Doppler, and M-Mode. Mild LVH. LV internal dimensions are normal. Wall motion normal. EF greater than or equal to 55%. Aortic valve is tricuspid. No evidence of stenosis by Doppler interrogation. Left atrium is normal at 3.9 cm. Mitral valve shows no prolapse. Trace MR. Right-sided chambers are grossly normal. Trace TR. TRANSINT:[id number] Voice Confirmation ID: [id number] DOCUMENT ID: [id number] ECHOCARDIOGRAM REPORT [id number] PHILIPPE LEON MARLENE FIERRO MD at 0956 CC: [id number] DICTATION DATE: 01/15/21 1136 DISABILITIES CAREGIVER: 01/15/21 194 ADM IN [facility] [address] [place] [address]
--- NOTE | 2021-01-16 09:56 | CN ---
PATIENT NAME:PHILIPPE LEON MEDICAL RECORD: [id number] : [birth year] LOCATION:DMelany D.2105 ADMIT DATE: 01/14/21 ACCOUNT: [id number] CONSULTING PHYSICIAN: MARLENE FIERRO MD REFERRING PHYSICIAN: CHRIS GARNER MD DATE OF CONSULTATION: 01/14/2021 HISTORY OF PRESENT ILLNESS: A 65-year-old gentleman with history of hypertension, hyperlipidemia, diabetes mellitus, admitted with some mental status changes, complaints including nausea, some epigastric pain, atypical chest pain ongoing by his report over the past week or so. He has had multiple constitutional symptomatology with malaise, fatigue, and tiredness. We were asked to see him concerning his cardiovascular status. PAST MEDICAL HISTORY: 1. History of hypertension. 2. Hyperlipidemia. 3. Diabetes mellitus. ALLERGIES: None known. MEDICATIONS: Include Metformin 0.5 gram b.i.d., HCTZ 25 mg p.o. every day, Holbrook 10/325 one q.4 p.r.n., Neurontin 100 t.i.d., pravastatin 40 daily, and amlodipine 5 mg p.o. daily. SOCIAL HISTORY: Nonsmoker, nondrinker, typically is able to take care of ADLs by his report. No set of exercise program. REVIEW OF SYSTEMS: The patient reports easy bruising but reports no swollen glands. The patient reports no fever, no night sweats, no significant weight gain, no significant weight loss. No significant exercise tolerance. The patient reports no dry eyes, no irritation, no vision change. Patient reports no difficulty hearing and no ear pain. Patient reports no frequent nose bleeds or nose and sinus problems. Patient reports on arm pain on exertion. No shortness of breath while lying down. No history of heart murmur. Patient reports no cough, no wheezing or coughing up blood. Patient reports no abdominal pain, no vomiting. Normal appetite. No diarrhea and not vomiting blood. No nausea and no constipation. Patient reports no incontinence. No difficulty urinating. No hematuria. No increased frequency. Patient reports no muscle aches. No weakness, no arthralgias, no back pain. No swelling of the extremities. Patient reports no abnormal mole, no jaundice, no rashes. Reports no loss of consciousness. No weakness and no numbness. No seizures, dizziness, or headaches. The patient reports no depression, no sleep disturbance, feeling safe in a relationship and no alcohol abuse. Patient reports on fatigue. Reports no runny nose or sinus pressure. No itching, no hives, and no frequent sneezing. PHYSICAL EXAMINATION: GENERAL: No acute distress, appears stated age. VITAL SIGNS: Blood pressure 95/56. Pulse 98 and regular. HEENT: Normocephalic, atraumatic. NECK: No bruits are noted. HEART: Regular. A II/ systolic ejection murmur. LUNGS: Diminished breath sounds. ABDOMEN: Soft, nontender. CONSULT REPORT [id number] PHILIPPE LEON EXTREMITIES: Pulses are actually palpable 2+ with 1+ edema. EKG, no acute changes. IMPRESSION: Chest pain, not classic for cardiac ischemia. Certainly multiple risk factors for coronary artery disease. Agree with serial enzymes. Check echocardiogram study to assess for any focal wall motion abnormalities. Replace potassium. Otherwise, as you are doing as well as appeared to be a little intravascular volume deplete. Further recommendations based on clinical course. TRANSINT:[id number] Voice Confirmation ID: [id number] DOCUMENT ID: [id number] MARLENE FIERRO MD at 0956 CC: [id number] DICTATION DATE: 01/14/21 165 RELIEF DRILLER: 01/15/21 0122 ADM IN [place] [id number] [place] [id number]
--- NOTE | 2021-01-16 10:46 | NUR ---
DRESSING CHANGED TO R FOOT, KEESHA WELL, LOWER LEG RED AND WARM TO TOUCH
[2021-01-17 07:36] LABS: BASOPHILS 0.4 % (0-2); EOSINOPHILS 2.2 % (0-7); HEMATOCRIT 50.2 % (42.0-54.0); HEMOGLOBIN 16.7 g/dL (13.5-17.5); IMMATURE GRANULOCYTES 0.5 % (0-5); LYMPHOCYTE ABS# 0.99 10x3/uL (1.32-3.57); LYMPHOCYTES 9.6 % (15-50); MCH 29.3 pg (26.0-34.0); MCHC 33.3 g/dL (31.0-37.0); MCV 88.1 fL (80.0-100.0); MEAN PLATELET VOLUME 11.2 fL (7.4-10.4); MONOCYTES 6.6 % (2-11); NEUTROPHIL ABS# 8.28 10x3/uL (1.78-5.38); NEUTROPHILS 80.7 % (40-80); PLATELET COUNT 162 10x3/uL (130-400); RDW 15.2 % (11.5-14.5)
[2021-01-17 07:51] LABS: ALKALINE PHOSPHATASE 107 U/L (30-120); ALT (SGPT) 15 U/L (10-68); BILIRUBIN - TOTAL 0.48 mg/dL (0.2-1.3); CALCIUM 8.5 mg/dL (8.5-10.1); CARBON DIOXIDE 27.7 mmol/L (21.0-32.0); CHLORIDE - SERUM 100 mmol/L (98-107); CREATININE - SERUM 1.1 mg/dL (0.6-1.3); GLUCOSE 118 mg/dL (74-106); MAGNESIUM - SERUM 1.9 mg/dL (1.8-2.4); POTASSIUM - SERUM 3.6 mmol/L (3.5-5.1); PROTEIN - SERUM 6.5 g/dL (6.4-8.2); SODIUM 136 mmol/L (136-145); TROPONIN-I < 0.017 ng/mL (0.000-0.060); eGFR NON AFRICAN AMERICAN 71 mL/min (90-120)
[2021-01-17 07:52] LABS: ALBUMIN 2.3 g/dL (3.4-5.0); CALC OSMOLALITY 270 mosm/kg (275-300); UREA NITROGEN 8 mg/dL (7-18)
[2021-01-17 07:56] LABS: WBC 10.3 10x3/uL (4.8-10.8)
[2021-01-17 08:44] VITALS: BP 112/66
--- NOTE | 2021-01-17 10:26 | NUR ---
PATIENT GETTING UP TO SHOWER
[2021-01-17 12:13] VITALS: Ht 198.1 cm; Wt 169.2 kg
[2021-01-17 13:36] VITALS: BP 109/61
[2021-01-17 18:08] LABS: AEROBE ID Final report (())
--- NOTE | 2021-01-17 19:00 | NUR ---
REPORT GIVEN BY JUANA LITTLE
--- NOTE | 2021-01-17 19:30 | NUR ---
TALKED TO PT BRIEFLY. DISCUSSED PLAN OF CARE AND WHAT TO EXPECT. NO C/O AT THIS TIME
[2021-01-17 19:40] VITALS: BP 109/61
--- NOTE | 2021-01-17 22:00 | NUR ---
PT DECIDED HE WANTED NURSE TO REMOVE THE DRESSING TO HIS RIGHT LOWER LEG AND PUT IS OWN FROM HOME TEDS ON. I TOLD HIM THAT I DID NOT HAVE A DR. ORDER FOR THIS AND I WOULD NOT DO IT. HE WAS A BIT ANGRY. HE SAID HIS LEF WAS GOING TO DO NOTHING BUT GET BIGGER IF I DIDN'T DO WHAT HE SAID. AGAIN I TOLD HIM I DID NOT HAVE AN ORDER TO DO THIS AND I WASN'T DOING IT. HE THEN SAID, WHAT IF I DO IT MYSELF... I REPLIED THAT HE MAY BE DOING MORE DAMAGE THAN GOOD. I ASKED HIM TO DISCUSS THIS WITH HIS DR WHEN THEY ROUNDED IN THE MORNING. HE SAID HE DIDN'T KNOW WHO HIS DR. WAS AND HE KNEW THE BEST THING FOR HIS LEG. I DID NOT DISCUSS THIS MATTER ANY MORE WITH HIM. PT GETS UP TO THE BSC ALONE. HE HAS NO NEW C/O AT THIS TIME.
--- NOTE | 2021-01-17 22:00 | NUR ---
PT TELLS ME THAT HE USES A BARK BAG TO PEE IN. HE STATES ITS SO MUCH EASIER THAN USING A URINAL.
[2021-01-18 00:19] VITALS: BP 100/58
--- NOTE | 2021-01-18 00:40 | NUR ---
PT IS SLEEPING SOUNDLY. IV MEDS HUNG.
--- NOTE | 2021-01-18 04:40 | NUR ---
PT HAS BEEN RESTING ALL NIGHT WITHOUT C/O
[2021-01-18 06:09] LABS: BASOPHILS 0.5 % (0-2); EOSINOPHILS 1.8 % (0-7); HEMATOCRIT 48.7 % (42.0-54.0); HEMOGLOBIN 16.4 g/dL (13.5-17.5); IMMATURE GRANULOCYTES 0.9 % (0-5); LYMPHOCYTE ABS# 1.44 10x3/uL (1.32-3.57); MCH 29.9 pg (26.0-34.0); MCHC 33.7 g/dL (31.0-37.0); MCV 88.9 fL (80.0-100.0); MEAN PLATELET VOLUME 10.6 fL (7.4-10.4); MONOCYTES 9.7 % (2-11); NEUTROPHILS 73.1 % (40-80); PLATELET COUNT 167 10x3/uL (130-400); RBC 5.48 10x6/uL (4.20-6.10); RDW 15.2 % (11.5-14.5); WBC 10.3 10x3/uL (4.8-10.8)
[2021-01-18 06:26] LABS: ALBUMIN 2.2 g/dL (3.4-5.0); ALKALINE PHOSPHATASE 105 U/L (30-120); ALT (SGPT) 16 U/L (10-68); BILIRUBIN - TOTAL 0.48 mg/dL (0.2-1.3); CALC OSMOLALITY 272 mosm/kg (275-300); CALCIUM 8.5 mg/dL (8.5-10.1); CARBON DIOXIDE 26.4 mmol/L (21.0-32.0); CHLORIDE - SERUM 104 mmol/L (98-107); CREATININE - SERUM 1.1 mg/dL (0.6-1.3); GLUCOSE 112 mg/dL (74-106); MAGNESIUM - SERUM 1.9 mg/dL (1.8-2.4); POTASSIUM - SERUM 3.9 mmol/L (3.5-5.1); PROTEIN - SERUM 6.3 g/dL (6.4-8.2); SODIUM 137 mmol/L (136-145); TROPONIN-I < 0.017 ng/mL (0.000-0.060); UREA NITROGEN 6 mg/dL (7-18); eGFR NON AFRICAN AMERICAN 71 mL/min (90-120)
--- NOTE | 2021-01-18 06:40 | NUR ---
BS 108 NO INSULIN REQUIRED. OTHER LYTES WNL
[2021-01-18 08:17] VITALS: BP 110/54
--- NOTE | 2021-01-18 08:20 | NUR ---
PATIENT SITTING UP IN BED, JUST GOT BACK FROM BSC. PATIENT HAS A LOT OF QUESTIONS THIS AM. THE DR CAME BY TO SEE HIM AND ANSWER QUESTIONS. REPORTED HAVING PAIN THAT WOKE HIM UP. CALL LIGHT IN REACH. LEG IS MORE RED TODAY AND GOES UP A LITTLE HIGHER ON HIS CALF.
--- NOTE | 2021-01-18 11:45 | NUR ---
TYLENOL GIVEN FOR LEG PAIN, NOT TIME FOR ULTRAM
[2021-01-18 12:42] VITALS: BP 116/58
--- NOTE | 2021-01-18 13:41 | NUR ---
NURSE COMPLETES WOUND CARE, AND APPLIES LOTION TO PATIENT'S LEGS PER HIS REQUEST. NURSE TO PLACE [facility] AFTER
[2021-01-18 15:57] VITALS: BP 105/58
--- NOTE | 2021-01-18 16:15 | NUR ---
OT NOTE: PT COMPLETED BUE AROM EXS TOLERATED. PT COMPLETED BED MOBILITY TASKS WITH SBA. PT COMPLETED EOB SITTING WITH SBA. [phone] THANK YOU,MAC HUGHES
[2021-01-18 20:00] VITALS: BP 105/55
[2021-01-18 21:00] VITALS: BP 105/55
--- NOTE | 2021-01-18 22:12 | NUR ---
Pt resting in bed and denies any needs at this time. The Pt is watching TV, call light in reach, bed in low position. Assessment and vitals per flow sheet, meds per MAR.
[2021-01-19 05:03] VITALS: BP 103/57
--- NOTE | 2021-01-19 07:01 | NUR ---
Antibiotic given would not scan
[2021-01-19 07:35] LABS: BASOPHILS 1.1 % (0-2); EOSINOPHILS 2.5 % (0-7); HEMATOCRIT 51.6 % (42.0-54.0); HEMOGLOBIN 16.9 g/dL (13.5-17.5); IMMATURE GRANULOCYTES 2.3 % (0-5); LYMPHOCYTE ABS# 1.65 10x3/uL (1.32-3.57); LYMPHOCYTES 18.4 % (15-50); MCH 29.2 pg (26.0-34.0); MCHC 32.8 g/dL (31.0-37.0); MCV 89.3 fL (80.0-100.0); MEAN PLATELET VOLUME 10.3 fL (7.4-10.4); MONOCYTES 8.2 % (2-11); NEUTROPHIL ABS# 6.05 10x3/uL (1.78-5.38); NEUTROPHILS 67.5 % (40-80); PLATELET COUNT 180 10x3/uL (130-400); RBC 5.78 10x6/uL (4.20-6.10); RDW 15.7 % (11.5-14.5)
[2021-01-19 07:55] LABS: ALBUMIN 2.3 g/dL (3.4-5.0); ALKALINE PHOSPHATASE 97 U/L (30-120); ALT (SGPT) 17 U/L (10-68); BILIRUBIN - TOTAL 0.48 mg/dL (0.2-1.3); CALC OSMOLALITY 273 mosm/kg (275-300); CALCIUM 8.7 mg/dL (8.5-10.1); CARBON DIOXIDE 26.4 mmol/L (21.0-32.0); CHLORIDE - SERUM 102 mmol/L (98-107); CREATININE - SERUM 1.2 mg/dL (0.6-1.3); GLUCOSE 156 mg/dL (74-106); MAGNESIUM - SERUM 1.9 mg/dL (1.8-2.4); POTASSIUM - SERUM 3.5 mmol/L (3.5-5.1); PROTEIN - SERUM 6.5 g/dL (6.4-8.2); SODIUM 137 mmol/L (136-145); TROPONIN-I < 0.017 ng/mL (0.000-0.060); UREA NITROGEN 5 mg/dL (7-18); eGFR NON AFRICAN AMERICAN 64 mL/min (90-120)
[2021-01-19 08:00] VITALS: BP 118/60
--- NOTE | 2021-01-19 15:26 | NUR ---
SAT ON SOB WITH MIN ASSIT DID SOME LEG EXERCIES AND ARM EXERCIES REFUSED TO WALK
--- NOTE | 2021-01-19 17:12 | NUR ---
OT NOTE: PT STATED HIS RLE WAS TOO PAINFUL TO STAND. PT COMPLETED EOB SITTING BALANCE WITH SPV. PT COMPLETED SUPINE TO SIT WITH SPV. PT COMPLETED BUE AROM EXS TOLERATED. PT COMPLETED EOB SITTING ENDURANCE WITH SPV. PT STATED HE WANTED TO SPEAK TO NURSING...HE WANTED A NEW MD SECONDARY TO NOT BEING ABLE TO HAVE COMPRESSION HOSE. MAC NOTIFIED NURSING OF PT REQUEST. [phone] FLOR JOAQUIN COTA
--- NOTE | 2021-01-19 19:30 | NUR ---
PT IN BED, AAO X 4, RESP EVEN AND UNLABORED, NO DISTRESS NOTED, CL IN REACH, SR UP X 2.
[2021-01-19 20:00] VITALS: BP 128/63
[2021-01-20 04:00] VITALS: BP 119/65
[2021-01-20 05:53] LABS: BASOPHILS 0.2 % (0-2); EOSINOPHILS 2.1 % (0-7); HEMATOCRIT 51.6 % (42.0-54.0); HEMOGLOBIN 16.9 g/dL (13.5-17.5); LYMPHOCYTE ABS# 1.81 10x3/uL (1.32-3.57); LYMPHOCYTES 19.9 % (15-50); MCH 29.3 pg (26.0-34.0); MCHC 32.8 g/dL (31.0-37.0); MCV 89.4 fL (80.0-100.0); MEAN PLATELET VOLUME 10.6 fL (7.4-10.4); MONOCYTES 8.1 % (2-11); NEUTROPHIL ABS# 6.08 10x3/uL (1.78-5.38); NEUTROPHILS 66.7 % (40-80); PLATELET COUNT 207 10x3/uL (130-400); RBC 5.77 10x6/uL (4.20-6.10); RDW 15.7 % (11.5-14.5); WBC 9.1 10x3/uL (4.8-10.8)
--- NOTE | 2021-01-20 06:13 | NUR ---
I have reviewed this patient and I concur with the Shift Assessment completed by the Licensed Practical Nurse today this shift.
[2021-01-20 06:21] LABS: ALBUMIN 2.3 g/dL (3.4-5.0); ALKALINE PHOSPHATASE 97 U/L (30-120); ALT (SGPT) 16 U/L (10-68); BILIRUBIN - TOTAL 0.47 mg/dL (0.2-1.3); CALC OSMOLALITY 272 mosm/kg (275-300); CALCIUM 8.9 mg/dL (8.5-10.1); CARBON DIOXIDE 27.5 mmol/L (21.0-32.0); CHLORIDE - SERUM 102 mmol/L (98-107); CREATININE - SERUM 1.1 mg/dL (0.6-1.3); MAGNESIUM - SERUM 1.9 mg/dL (1.8-2.4); POTASSIUM - SERUM 3.7 mmol/L (3.5-5.1); PROTEIN - SERUM 6.8 g/dL (6.4-8.2); SODIUM 138 mmol/L (136-145); TROPONIN-I < 0.017 ng/mL (0.000-0.060); UREA NITROGEN 5 mg/dL (7-18); eGFR NON AFRICAN AMERICAN 71 mL/min (90-120)
[2021-01-20 06:30] LABS: GLUCOSE 107 mg/dL (74-106)
--- NOTE | 2021-01-20 07:10 | NUR ---
Lying in bed, awake/alert/oriented, T/R self ad priscila, cont of B/B with BRPs per self ad priscila, denies pain/other discomfort at this time, call light/phone/water within reach, no s/s of acute distress observed.
[2021-01-20 08:23] VITALS: BP 138/80
--- NOTE | 2021-01-20 10:09 | NUR ---
Nutrition Reassessment/Follow-up: Pt sleeping soundly on multiple attempts to visit this AM. Nursing reports pt eating ok. Renal function continues to improve. Diet: Renal ADA No new wt; last wt: 373# (01/17) Labs noted: K+ 3.7, BUN 5, Cre 1.1, GFR 71, Glu 107, Alb 2.3 Meds noted: Lasix, KDur, Lactulose, Florajen -Change to cardiac carb consistent diet. -Need new wt; noted daily wts ordered. -RD will follow up within 5-7 days if pt still admitted.
--- NOTE | 2021-01-20 13:29 | NUR ---
PATIENT REFUSED TO SIT UP AT BEDSIDE OR STAND. PATIENT WOULD ONLY DO ARM AND LEG EXERCISES. PATIENT ABLE TO MOVE HIS ARMS AND LEGS WITHOUT ASST.
[2021-01-20 15:11] VITALS: BP 114/60
--- NOTE | 2021-01-20 17:42 | NUR ---
OT NOTE: PT DECLINED SITTING UP AT EOB. PT COMPLETED BUE AROM EXS FOR INCREASED AX TOLERANCE WITH FUNCTIONAL TASKS. PT COMPLETED POSITIONING IN BED WITH SPV. PT COMPLETED FACE AND HAND HYGIENE WITH SETUP. PT IS PLEASANT BUT EXHIBITS SELF LIMITING BEHAVIOR. PT EDUCATED ON THE BENEFITS OF THERAPY PARTICIPATION. [phone] THANK YOU,MAC HUGHES
[2021-01-20 22:48] VITALS: BP 107/57
[2021-01-21 01:00] VITALS: BP 121/58
--- NOTE | 2021-01-21 04:22 | NUR ---
I have reviewed this patient and I concur with the Shift Assessment completed by the Licensed Practical Nurse today this shift.
[2021-01-21 06:40] LABS: ALBUMIN 2.5 g/dL (3.4-5.0); BILIRUBIN - TOTAL 0.46 mg/dL (0.2-1.3); CALCIUM 8.5 mg/dL (8.5-10.1); CARBON DIOXIDE 27.3 mmol/L (21.0-32.0); CREATININE - SERUM 1.1 mg/dL (0.6-1.3); PROTEIN - SERUM 6.4 g/dL (6.4-8.2)
[2021-01-21 06:45] LABS: ANION GAP 13.2 mmol/L (8-16); POTASSIUM - SERUM 4.5 mmol/L (3.5-5.1)
--- NOTE | 2021-01-21 07:00 | NUR ---
Lying in bed, awake/alert/oriented, T/R self ad priscila, cont of B/B with BSC with assist ad priscila, denies pain/other discomfort at this time, call light/phone/water within reach, no s/s of acute distress observed.
[2021-01-21 08:00] VITALS: BP 126/65
[2021-01-21 09:12] LABS: BASOPHILS 0.4 % (0-2); EOSINOPHILS 1.9 % (0-7); HEMATOCRIT 52.1 % (42.0-54.0); HEMOGLOBIN 17.3 g/dL (13.5-17.5); IMMATURE GRANULOCYTES 2.4 % (0-5); LYMPHOCYTE ABS# 1.46 10x3/uL (1.32-3.57); LYMPHOCYTES 17.4 % (15-50); MCH 29.6 pg (26.0-34.0); MCHC 33.2 g/dL (31.0-37.0); MCV 89.2 fL (80.0-100.0); MEAN PLATELET VOLUME 10.3 fL (7.4-10.4); MONOCYTES 5.5 % (2-11); NEUTROPHIL ABS# 6.07 10x3/uL (1.78-5.38); NEUTROPHILS 72.4 % (40-80); PLATELET COUNT 215 10x3/uL (130-400); RBC 5.84 10x6/uL (4.20-6.10); RDW 15.9 % (11.5-14.5); WBC 8.4 10x3/uL (4.8-10.8)
--- NOTE | 2021-01-21 14:24 | NUR ---
OT NOTE: PT DID WELL. PT COMPLETED KIAH GOWN WITH SPV. PT COMPLETED ADL MOBILITY WITH NO AD WITH SPV. PT COMPLETED TOILETING WITH SPV. PT COMPLETED HYGIENE TASKS WITH SPV. PT COMPLETED BUE AROM EXS TOLERATED AT EOB. [phone] THANK YOU,MAC HUGHES
--- NOTE | 2021-01-21 14:37 | NUR ---
PATIENT ABLE TO GET UP TO BEDSIDE AND STAND BY HIMSELF. PATIENT WALKED AROUND ROOM INDEPENDENTLY FOR 40 FEET.
--- NOTE | 2021-01-21 19:30 | NUR ---
PT IN BED, AAO X 4, RESP EVEN AND UNLABORED, NO DISTRESS NOTED, CL IN REACH, SR UP X 2.
[2021-01-21 21:53] VITALS: BP 115/68
[2021-01-22 01:54] VITALS: BP 114/55
--- NOTE | 2021-01-22 02:18 | NUR ---
I have reviewed this patient and I concur with the Shift Assessment completed by the Licensed Practical Nurse today this shift.
[2021-01-22 06:24] VITALS: BP 105/41
[2021-01-22 08:17] VITALS: BP 117/69
[2021-01-22 08:26] LABS: BASOPHILS 0.3 % (0-2); EOSINOPHILS 2.4 % (0-7); HEMATOCRIT 56.4 % (42.0-54.0); HEMOGLOBIN 18.8 g/dL (13.5-17.5); IMMATURE GRANULOCYTES 1.9 % (0-5); LYMPHOCYTE ABS# 1.47 10x3/uL (1.32-3.57); LYMPHOCYTES 18.8 % (15-50); MCH 29.7 pg (26.0-34.0); MCHC 33.3 g/dL (31.0-37.0); MONOCYTES 6.2 % (2-11); NEUTROPHIL ABS# 5.49 10x3/uL (1.78-5.38); NEUTROPHILS 70.4 % (40-80); PLATELET COUNT 236 10x3/uL (130-400); RBC 6.34 10x6/uL (4.20-6.10); RDW 15.9 % (11.5-14.5); WBC 7.8 10x3/uL (4.8-10.8)
[2021-01-22 08:30] LABS: ALBUMIN 2.7 g/dL (3.4-5.0); ANION GAP 12.2 mmol/L (8-16); BILIRUBIN - TOTAL 0.67 mg/dL (0.2-1.3); CALCIUM 8.9 mg/dL (8.5-10.1); CARBON DIOXIDE 28.9 mmol/L (21.0-32.0); CREATININE - SERUM 1.3 mg/dL (0.6-1.3); POTASSIUM - SERUM 4.1 mmol/L (3.5-5.1)
[2021-01-22 12:48] VITALS: BP 120/66
[2021-01-22 16:37] VITALS: BP 106/54
--- NOTE | 2021-01-22 19:53 | NUR ---
INITIAL ROUNDS AND ASSESSMENT COMPLETED. PT RESTING WITH NO DISTRESS. CALL LIGHT IN REACH.
[2021-01-22 20:30] VITALS: BP 112/57
[2021-01-23 00:30] VITALS: BP 133/64
[2021-01-23 04:30] VITALS: BP 135/63
[2021-01-23 06:05] LABS: BASOPHILS 0.3 % (0-2); EOSINOPHILS 2.7 % (0-7); HEMATOCRIT 54.6 % (42.0-54.0); HEMOGLOBIN 17.7 g/dL (13.5-17.5); IMMATURE GRANULOCYTES 1.3 % (0-5); LYMPHOCYTE ABS# 1.69 10x3/uL (1.32-3.57); LYMPHOCYTES 24.3 % (15-50); MCH 29.1 pg (26.0-34.0); MCHC 32.4 g/dL (31.0-37.0); MCV 89.7 fL (80.0-100.0); MEAN PLATELET VOLUME 9.8 fL (7.4-10.4); NEUTROPHIL ABS# 4.62 10x3/uL (1.78-5.38); NEUTROPHILS 66.4 % (40-80); PLATELET COUNT 257 10x3/uL (130-400); RBC 6.09 10x6/uL (4.20-6.10); RDW 15.9 % (11.5-14.5)
[2021-01-23 06:38] LABS: BILIRUBIN - TOTAL 0.66 mg/dL (0.2-1.3); CARBON DIOXIDE 26.2 mmol/L (21.0-32.0); CREATININE - SERUM 1.4 mg/dL (0.6-1.3); POTASSIUM - SERUM 4.2 mmol/L (3.5-5.1); PROTEIN - SERUM 8.1 g/dL (6.4-8.2)
[2021-01-23 06:44] LABS: ALBUMIN 2.8 g/dL (3.4-5.0)
--- NOTE | 2021-01-23 06:48 | NUR ---
NO CHANGE FROM INITIAL SHIFT ASSESSMENT. CALL LIGHT IN REACH. REPORT TO ONCOMING SHIFT.
[2021-01-23 08:47] VITALS: BP 118/67
--- NOTE | 2021-01-23 10:42 | NUR ---
PT ROUNDING. PT STABLE WITH NO COMPLAINTS OR NEEDS AT PRESENT TIME. CALL LIGHT IN REACH. BED IN LOWEST POSITION.
[2021-01-23 12:16] VITALS: BP 116/69
[2021-01-23] MEDS ORDERED: CHRONULAC30 ML PO (12:33)
[2021-01-23] MEDS ORDERED: K-DUR20 MEQ PO (12:33)
[2021-01-23] MEDS ORDERED: FLORAJEN3 CAPS460 MG PO (12:34)
[2021-01-23] MEDS ORDERED: CLOTRIM ANTIFUN15 GM TOPICAL (12:34)
[2021-01-23] MEDS ORDERED: MUPIROCIN22 GM TOPICAL (12:34)
[2021-01-23] MEDS ORDERED: LASIX40 MG PO (12:35)
--- NOTE | 2021-01-23 16:38 | MORECARE ---
CASE MANAGEMENT DISCHARGE SUMMARY PATIENT: PHILIPPE LEON UNIT: [id number] ADM DATE: 01/14/21 AGE: 65 : 54 SEX: M ROOM/BED: D.2106 AUTHOR: SOTERO SEYMOUR PHYSICIAN: REFERRING PHYSICIAN: CHRIS GARNER MD DATE OF SERVICE: 01/23/21 Case Management Discharge Planning Summary COMMENTS ENTERED DATE: 01/23/21 16:34 CT COMMENT TYPE: Discharge Planning REVIEWER: Kermit Ibarra CM met with patient to complete DC plan and to evaluate needs. Patient lives at home independently with his spouse, Mckayla Leon, . Patient stated that their home is safe and has electricity and running water. Patient stated that he has no problems paying for medications and they fill their medications at [facility]. Patient stated that his primary care physician is Dr. Ángel Luna. At discharge, the patient plans to return home and feels this is a safe discharge. CM discussed availability of home health, rehab services, and medical equipment. Patient declined HHS, SNF, IPR, and DME. Patient stated that he had [facility] in the past and that he and his are comfortable with taking care of his foot. Patient stated that he is able to move about his home without trouble and he has a ramp to enter his home. NOLBERTO refusal for home health signed and placed on chart. Patient voiced no other needs at this time and is satisfied with DC plan. Transportation provider at discharge will be with his spouse Mckayla. DC IMM delivered, explained, signed by the patient, and placed in chart. Signed form also left with the patient. CM will continue to follow and will assist as needed with dc plans/needs DCP REVIEW SUMMARY ANTICIPATED D/C DATE: 01/23/2021 EXPECTED LOS : 9 CASE STATUS: DCP Initiated INITIAL REVIEW: 01/14/2021 INITIAL REVIEWER: Kermit Ibarra FINAL DISCHARGE DISPOSITION: : FINAL REVIEWER: FINAL REVIEW DATE: DCP Focus Questions & Answers DCP Evaluation QUESTION: ANSWER Patient gives permission to discuss discharge plans with: (name, relationship and number) : spouse, Mckayla Leon, Patient's ability to cope with chronic illness : d. No chronic illness Patient's current cognitive status: : *Oriented to person, place, situation, time and present Family / Caregiver's ability to cope with chronic illness: : a. Adequate (ability to meet patient's medical needs, ensures patient attends medical appts.) Patient and/or caregiver agree upon recommended discharge plan? : Yes Physical Status: : Independent with ADL's Family / Caregiver's ability to cope with chronic illness: : a. Adequate (ability to meet patient's medical needs, ensures patient attends medical appts.) Functional screen assessment: : Basic needs can adequately be met by self Does the patient have the ability to pay for or attain post discharge needs / services? : Yes Living Arrangements: : Home with Spouse/Significant Other Is there a likelihood that the patient will require additional services to return to the preadmission environment? : No Equipment needed for post hospitalization: : None Baseline cognitive status: : *Oriented to person, place, situation, time and present Patient with capacity for self-care or can be cared for in same environment as prior to hospitalization? : Yes Physical environment modification needed / anticipated for discharge: : No Medication Management: : Patient states can afford medications Medication Management: : Patient states can read and understand medication labels Pharmacy name(s): : [facility] Does Patient have transportation to get home and to follow-up medical appointments when discharged from the hospital? : Yes Would patient like to participate in any Care Coordination programs (if applicable): : Not applicable Does the patient have electricity at home? : Yes Does the patient have running water in their house? : Yes Equipment in use: : None Mental health screen: : No mental health history DCP Re-evaluation QUESTION: ANSWER Would patient like to participate in any Care Coordination programs (if applicable): : Not applicable PATIENT: PHILIPPE LEON ENCOUNTER: [id number] MEDICAL RECORD#: [id number] ADMISSION DATE: 01/14/2021 DISCHARGE DATE: 01/23/2021 ATTENDING MD: CHRIS EVERETT : AGE: 65 MARITAL STATUS: M DC PLAN ID: [id number] FACILITY: [facility] PRINTED ON: 01/23/21 16:38 CT All edits/amendments must be made on the electronic document DICTATION DATE: 01/23/211637 SUPERINTENDENT DIVISION: MILLICENT 01/23/211637 RPT#: [id number] DC DATE:01/23/21 STATUS: DIS IN [facility] [address] [place] [address] END OF REPORT
--- NOTE | 2021-01-24 19:13 | MORECARE ---
CASE MANAGEMENT DISCHARGE SUMMARY PATIENT: PHILIPPE LEON UNIT: [id number] ADM DATE: 01/14/21 AGE: 65 : 54 SEX: M ROOM/BED: D.2108 AUTHOR: SOTERO SEYMOUR PHYSICIAN: REFERRING PHYSICIAN: CHRIS GARNER MD DATE OF SERVICE: 01/24/21 Case Management Discharge Planning Summary COMMENTS ENTERED DATE: 01/23/21 16:34 CT COMMENT TYPE: Discharge Planning REVIEWER: Kermit Ibarra CM met with patient to complete DC plan and to evaluate needs. Patient lives at home independently with his spouse, Mckayla Leon, . Patient stated that their home is safe and has electricity and running water. Patient stated that he has no problems paying for medications and they fill their medications at [facility]. Patient stated that his primary care physician is Dr. Ángel Luna. At discharge, the patient plans to return home and feels this is a safe discharge. CM discussed availability of home health, rehab services, and medical equipment. Patient declined HHS, SNF, IPR, and DME. Patient stated that he had [facility] in the past and that he and his are comfortable with taking care of his foot. Patient stated that he is able to move about his home without trouble and he has a ramp to enter his home. NOLBERTO refusal for home health signed and placed on chart. Patient voiced no other needs at this time and is satisfied with DC plan. Transportation provider at discharge will be with his spouse Mckayla. DC IMM delivered, explained, signed by the patient, and placed in chart. Signed form also left with the patient. CM will continue to follow and will assist as needed with dc plans/needs DCP REVIEW SUMMARY ANTICIPATED D/C DATE: 01/23/2021 EXPECTED LOS : 9 CASE STATUS: DCP Initiated INITIAL REVIEW: 01/14/2021 INITIAL REVIEWER: Kermit Ibarra FINAL DISCHARGE DISPOSITION: : FINAL REVIEWER: FINAL REVIEW DATE: DCP Focus Questions & Answers DCP Evaluation QUESTION: ANSWER Patient and/or caregiver agree upon recommended discharge plan? : Yes Family / Caregiver's ability to cope with chronic illness: : a. Adequate (ability to meet patient's medical needs, ensures patient attends medical appts.) Patient's current cognitive status: : *Oriented to person, place, situation, time and present Patient's ability to cope with chronic illness : d. No chronic illness Patient gives permission to discuss discharge plans with: (name, relationship and number) : spouse, Mckayla Leon, Does the patient have the ability to pay for or attain post discharge needs / services? : Yes Functional screen assessment: : Basic needs can adequately be met by self Family / Caregiver's ability to cope with chronic illness: : a. Adequate (ability to meet patient's medical needs, ensures patient attends medical appts.) Physical Status: : Independent with ADL's Equipment needed for post hospitalization: : None Is there a likelihood that the patient will require additional services to return to the preadmission environment? : No Living Arrangements: : Home with Spouse/Significant Other Patient with capacity for self-care or can be cared for in same environment as prior to hospitalization? : Yes Baseline cognitive status: : *Oriented to person, place, situation, time and present Physical environment modification needed / anticipated for discharge: : No Medication Management: : Patient states can read and understand medication labels Medication Management: : Patient states can afford medications Pharmacy name(s): : [facility] Does Patient have transportation to get home and to follow-up medical appointments when discharged from the hospital? : Yes Would patient like to participate in any Care Coordination programs (if applicable): : Not applicable Does the patient have electricity at home? : Yes Does the patient have running water in their house? : Yes Equipment in use: : None Mental health screen: : No mental health history DCP Re-evaluation QUESTION: ANSWER Would patient like to participate in any Care Coordination programs (if applicable): : Not applicable PATIENT: PHILIPPE LEON ENCOUNTER: [id number] MEDICAL RECORD#: [id number] ADMISSION DATE: 01/14/2021 DISCHARGE DATE: 01/23/2021 ATTENDING MD: CHRIS EVERETT : AGE: 65 MARITAL STATUS: M DC PLAN ID: [id number] FACILITY: [facility] PRINTED ON: 01/24/21 19:13 CT All edits/amendments must be made on the electronic document DICTATION DATE: 01/24/211911 HEATER INSTALLER: MILLICENT 01/24/211911 RPT#: [id number] DC DATE:01/23/21 STATUS: DIS IN [facility] [address] [place] [address] END OF REPORT
== END 2021-01-23 14:00 | disposition home or self-care (01) | DRG 872 ==
LOC: D.ER 03:46 → D.M2 09:10
PROVIDERS: Emergency Medicine; Family Medicine; Internal Medicine Nephrology; ADMIT Family Medicine; ATTEND Family Medicine
PROC: 0HDMXZZ Extraction of Right Foot Skin, External Approach (ICD-10-PCS; principal; 2021-01-16)
DX: A40.8 Other streptococcal sepsis (principal); E87.1 Hypo-osmolality and hyponatremia; E72.20 Disorder of urea cycle metabolism, unspecified; N17.9 Acute kidney failure, unspecified; Z68.41 Body mass index [BMI] 40.0-44.9, adult; L03.115 Cellulitis of right lower limb; J98.11 Atelectasis; I10 Essential (primary) hypertension; E11.65 Type 2 diabetes mellitus with hyperglycemia; D75.1 Secondary polycythemia; E87.6 Hypokalemia; E83.42 Hypomagnesemia; E11.40 Type 2 diabetes mellitus with diabetic neuropathy, unspecified; E86.9 Volume depletion, unspecified; E66.9 Obesity, unspecified; K72.90 Hepatic failure, unspecified without coma; E11.621 Type 2 diabetes mellitus with foot ulcer

== ENCOUNTER → 2021-02-11 07:53 | Outpatient (CLI) | payer MEDICARE ==
[2021-01-17 12:13] VITALS: BMI 43.1
[~2021-02-11 07:53] MED LIST changes: +CHRONULAC30 ML PO; +CLOTRIM ANTIFUN15 GM TOPICAL; +FLORAJEN3 CAPS460 MG PO; +K-DUR20 MEQ PO; +LASIX40 MG PO; +MUPIROCIN22 GM TOPICAL
== END | disposition home or self-care (01) ==
LOC: D.US 07:53
PROVIDERS: ATTEND Internal Medicine Hematology & Oncology
DX: D75.1 Secondary polycythemia (principal)